=== PATIENT | female | born 1980 ===

== ENCOUNTER 2018-01-22 09:13 | Day surgery (SDC) | payer MEDICAID ==
[2016-09-26 08:51] VITALS: BMI 35.6
[2018-01-22] MEDS ORDERED: Lidocaine Hydrochloride 10 ML INJ ONE (10:08)
[2018-01-22] MEDS ORDERED: Iohexol 240 (50 ml) ONE (10:10)
[2018-01-22] MEDS ORDERED: ceFAZolin 1 gm in NS 1 GM/100 ML BAG IVPB ONE (10:27)
[2018-01-22] MEDS ORDERED: HEPARIN-NS 5,000 UNITS/500 ML 5,000 UNIT/500 ML BAG IV ONE (10:29)
[2018-01-22] MEDS ORDERED: Midazolam 2 MG/2 ML VIAL ONE (12:02)
[2018-01-22] MEDS ORDERED: Propofol 10 mg/ml Inj (20 ML) ONE (12:02)
[2018-01-22] MEDS ORDERED: Lidocaine Hydrochloride 5 ML INJ ONE (12:04)
--- NOTE | 2018-01-22 12:52 | CP.SDSHP ---
Same Day Surgery H & P - History Proposed Procedure: Port placement Pre-Op Diagnosis: Left breast cancer - Allergies Allergies: Allergies No Known Allergies Allergy (Verified 04/19/16 19:25) - Physical Exam Vital Signs: Vital Signs 01/22/18 10:00 Temperature 98.2 F Pulse Rate 83 Respiratory 20 Rate Blood Pressure 112/65 O2 Sat by Pulse 97 Oximetry - Impression Impression: Pt with left breast cancer referred for port for chemotherapy. Plan right IJV port. Pt. Evaluated Today:Candidate for Anesthesia & Procedure: Yes (ASSA 3 Malampati 3) - Date & Time Date: 01/22/18 Time: 12:05 Short Stay Discharge - Short Stay Discharge Admitting Diagnosis/Reason for Visit: MALIGNANT NEOPLASM OF UNSP SITE OF RIGHT FEMALE BR Disposition: HOME/ ROUTINE
--- NOTE | 2018-01-22 12:53 | PCM.SURG1 ---
Surgeon's Initial Post Op Note - Surgeon's Notes Surgeon: Rony Marie MD Survey Data Technician: NONE Type of Anesthesia: IV Sedation Pre-Operative Diagnosis: breast cancer Operative Findings: US showed patent right IJV Post-Operative Diagnosis: breast cancer Operation Performed: Right IJV port placement. Specimen/Specimens Removed: NONE Estimated Blood Loss: EBL {In ML}: 4 Blood Products Given: N/A Drains Used: No Drains Post-Op Condition: Good Date of Surgery/Procedure: 01/22/18 Time of Surgery/Procedure: 12:50
[2018-01-22] MEDS ORDERED: HYDROmorphone 0.5 mg/0.5 ml ISec IVP PRN (13:10)
[2018-01-22] MEDS ORDERED: Lactated Ringer's 1,000 ML IV SCH (13:15)
[2018-01-22 14:25] VITALS: BP 109/60; PULSE 83; RESP 20; TEMP 97; O2SAT 97
--- NOTE | 2018-01-24 12:46 | CARD ---
APPROVED REPORT Date of service: 01/22/2018 EKG Measurement Heart [id number] <Conclusion> Normal sinus rhythm Normal ECG
--- NOTE | 2018-01-24 13:48 | RAD ---
PROCEDURE: Date of procedure: 01/22/2018 Procedure: 1. Placement of a right IJ port catheter with ultrasound and fluoroscopic guidance, CPT 16513 2. Catheter tip confirmation with spot radiograph in the superior vena cava. Medications: The patient was sedated anesthesiologist along with monitoring, Ancef 1 gm, Lidocaine 8cc 1% Fluoroscopic time: 8.4 Seconds Radiation: 5.6 MGy Blood loss: 4 cc HISTORY: Breast cancer requiring port for chemotherapy TECHNIQUE: Following informed consent the procedure time-out, patient was placed supine on the interventional table and the right neck and chest were prepped and draped in the usual sterile fashion. Ultrasound showed a compressible right internal jugular vein. After the patient was sedated by the anesthesiologist, the skin anesthetized with 1% lidocaine with epinephrine. Under direct ultrasound guidance, the right internal jugular vein was accessed with micropuncture technique. A guidewire was then advanced under fluoroscopic guidance into the superior vena cava. An image documenting ultrasound guidance for vascular access was permanently saved. The subcutaneous tissue of patient right chest was infiltrated with 1 percent lidocaine with epinephrine. A dermatotomy was made with a 15. Scalpel. The port pocket was then created with blunt dissection using a Maria Fernanda clamp. The port pocket was flushed. A port catheter was then tunneled under the skin and out the venotomy site. The port catheter was flushed, advanced through a peel-away sheath, adjusted for length, and attached to the port. The port was placed in the port pocket and was secured with 2-0 SurgiPro sutures. The port was flushed and locked with heparin. The port pocket was then closed with absorbable 4-0 Polysorb sutures. The port pocket and the venotomy site were reprepped with ChloraPrep. Steri-Strips were then applied to the port incision also venotomy site. A sterile dressing was then applied. Final spot radiograph showed the right IJ port catheter with tip of the port catheter in the superior vena cava. A port is functional and ready for use. IMPRESSION: Placement of right IJ port catheter. The tip of the port is in the superior vena cava.
== END 2018-01-22 14:34 | disposition home or self-care (01) ==
LOC: C.SPRAD 09:13 → C.SDS 09:13
PROVIDERS: ATTEND Radiology Vascular & Interventional Radiology
DX: C50.912 Malignant neoplasm of unspecified site of left female breast (principal)
CPT/HCPCS: 36571; 84703; C1788; J0690; J1644; J2250; J2704; J3010

== ENCOUNTER 2018-04-01 18:30 | Inpatient (IN) | payer MEDICAID ==
[2018-04-01 18:30] VITALS: BMI 35.6
[2018-04-01] MEDS ORDERED: Sodium Chloride 0.9% 1,000 ML ONE (18:51)
[2018-04-01] MEDS ORDERED: Sodium Chloride 0.9% 1,000 ML IV ONE ×5 (19:17→23:41)
--- NOTE | 2018-04-01 19:17 | C.PDOC ---
History Of Present Illness The patient, whose past medical history includes cancer (currently undergoing chemotherapy) presents to the ED for evaluation after having 4-5 episodes of bloody diarrhea earlier today. Patient shows a picture of her toilet bowl filled with bright red blood. She had one episode of vomiting after arrival in the ED. She denies fever, chills, or vaginal bleeding. Time Seen by Provider: 04/01/18 19:15 Chief Complaint (Nursing): Abdominal Pain History Per: Patient History/Exam Limitations: no limitations Onset/Duration Of Symptoms: Hrs Current Symptoms Are (Timing): Still Present Context: Other (unknown ) Severity: Mild Pain Scale Rating Of: 5 Location Of Pain/Discomfort: Diffuse Associated Symptoms: Vomiting, Diarrhea. denies: Fever, Chills, Urinary Symptoms Exacerbating Factors: None Alleviating Factors: None Last Bowel Movement: Today Recent travel outside of the [place]: No Additional History Per: Patient Abnormal Vaginal Bleeding: No Past Medical History Reviewed: Historical Data, Nursing Documentation, Vital Signs Vital Signs: Last Vital Signs Temp 98.9 F 04/01/18 18:46 Pulse 78 04/01/18 18:46 Resp 18 04/01/18 18:46 BP 96/59 L 04/01/18 18:46 Pulse Ox 98 04/01/18 18:46 - Medical History PMH: Asthma (NEVER HOSPITALIZED), Hypothyroidism Denies: Chronic Kidney Disease Surgical History: Tonsillectomy, - [facility] INJECT/INFUSE NEC (05/27/13) NEBULIZER THERAPY (08/11/13) Family History: States: Unknown Family Hx - Social History Hx Alcohol Use: No Hx Substance Use: No Review Of Systems Constitutional: Negative for: Fever, Chills Cardiovascular: Negative for: Chest Pain, Palpitations Respiratory: Negative for: Cough, Shortness of Breath Gastrointestinal: Positive for: Vomiting, Diarrhea, Hematochezia Genitourinary: Negative for: Dysuria, Frequency, Hematuria Musculoskeletal: Negative for: Back Pain Skin: Negative for: Rash, Lesions, Jaundice, Bruising Neurological: Negative for: Weakness, Numbness Physical Exam - Physical Exam Appears: Non-toxic, No Acute Distress Skin: Warm, Dry Head: Normacephalic Eye(s): bilateral: Normal Inspection Oral Mucosa: Moist Neck: Supple Chest: Symmetrical, No Deformity, No Tenderness, Other (port to right chest wall ) Cardiovascular: Rhythm Regular, No Murmur Respiratory: No Rales, No Rhonchi, No Wheezing Gastrointestinal/Abdominal: Soft, Tenderness (mild, diffuse ), No Guarding, No Rebound Rectal: Heme Positive, Other (rectal vault is empty. patient had large amount of poorly digested food in stool ) Extremity: Normal ROM, Capillary Refill (less than 2 seconds ) Extremity: Bilateral: Atraumatic, Normal Color And Temperature, Normal ROM Pulses: Left Dorsalis Pedis: Normal, Right Dorsalis Pedis: Normal Neurological/Psych: Oriented x3 Gait: Steady ED Course And Treatment - Laboratory Results Result Diagrams: 04/01/18 19:24 04/01/18 19:24 ECG: Interpreted By Me, Viewed By Me ECG Rhythm: Sinus Tachycardia (107), Nonspecific Changes O2 Sat by Pulse Oximetry: 98 (on RA ) Pulse Ox Interpretation: Normal - CT Scan/US CT Abd/Pel Other Rad Studies (CT/US): Read By Radiologist, Radiology Report Reviewed CT/US Interpretation: Findings: Chest: The visualized lung bases are clear. Abdomen: The liver, spleen, pancreas, kidneys, gallbladder, and adrenal glands are unremarkable. The aorta is within normal limits. There is no evidence of abdominal lymphadenopathy or ascites. There is mild fluid distention small bowel with minimal bowel wall thickening. Pelvis: The colon is unremarkable, with no obstructive or inflammatory changes. The urinary bladder is within normal limits. There is a large low attenuation lesion in the right adnexa measuring 3.7 x 3.2 cm. There is a low attenuation lesion in the left adnexa measuring 1.8 x 2.1 cm. The other pelvic structures appear grossly intact. There is no evidence of pelvic lymphadenopathy or ascites. Bones: There are no suspicious osseous abnormalities seen. Impression: 1. Mild enteritis. No evidence of bowel obstruction. 2. Bilateral ovarian cysts, with the right-sided cyst appearing larger than the left. Progress Note: Bloodwork and urinalysis ordered and reviewed. Protonix IVP and and IV Fluids given. 10:28 PM after 2 l nss pt still hypotensive and tachycardic. Spoke with dr florence -icu- will come and see the patient Critical Care Time - Critical Care Note Total Time (in mins): 30 Documented critical care: time excludes all time spent performing seperately billable procedures. Disposition Discussed With DrNellie: Hardik Beauchamp Comment: accepted the pt on his service and took over the care at 11:16 PM Doctor Will See Patient In The: ED Counseled Patient/Family Regarding: Studies Performed, Diagnosis, Need For Followup - Disposition Disposition: HOSPITALIZED Disposition Time: 19:16 Condition: GUARDED Forms: [facility] ([place]) - Clinical Impression Clinical Impression: Abdominal pain, Diarrhea, GI bleed - Scribe Statement The provider has reviewed the documentation as recorded by the Scribe (Kristy Mejia) Provider Attestation: All medical record entries made by the Scribe were at my direction and personally dictated by me. I have reviewed the chart and agree that the record accurately reflects my personal performance of the history, physical exam, medical decision making, and the department course for this patient. I have also personally directed, reviewed, and agree with the discharge instructions and disposition. Decision To Admit - Pt Status Changed To: Hospital Disposition Of: Inpatient - Admit Certification Admit to Inpatient:: After my assessment, the patient will require hospitalization for at least two midnights. This is because of the severity of symptoms shown, intensity of services needed, and/or the medical risk in this patient being treated as an outpatient. - InPatient: Physician Admission Certification:: After my assessment, the patient will require hospitalization for at least two midnights. This is because of the severity of symptoms shown, intensity of services needed, and/or the medical risk in this patient being treated as an outpatient. - . Bed Request Type: ICU Admitting Physician: Hardik Beauchamp Patient Diagnosis: Abdominal pain, Diarrhea, GI bleed
[2018-04-01 19:27] LABS: BASO % 0.1 % (0.0-2.0); HEMOGLOBIN 9.9 g/dL (11.0-16.0); LYMPH # 0.7 K/uL (1.0-4.3); LYMPH % 17.4 % (20.0-40.0); MEAN CELL VOLUME 87.2 fL (81.0-99.0); MEAN CORPUSCULAR HEMOGLOBIN 29.7 pg (27.0-31.0); MEAN PLATELET VOLUME 6.8 fL (7.2-11.7); MONO % 0.5 % (0.0-10.0); NEUT # 3.2 K/uL (1.8-7.0); RBC 3.33 Mil/uL (3.80-5.20); RED CELL DISTRIBUTION WIDTH 16.2 % (11.5-14.5); WHITE BLOOD COUNT 3.9 K/uL (4.8-10.8)
[2018-04-01] MEDS: metroNIDAZOLE IV 500 mg/100 ml 500 MG/100 ML BAG IVPB SCH (19:30)
[2018-04-01 19:39] LABS: BLOOD UREA NITROGEN 16 mg/dL (7-17); CALCIUM 8.4 mg/dl (8.6-10.4); GFR NON-AFRICAN AMERICAN > 60; INR 1.2; LIPASE 147 U/L (23-300); PROTHROMBIN TIME 12.9 SECONDS (9.7-12.2)
[2018-04-01 19:52] LABS: HCG,QUALITATIVE URINE NEGATIVE (NEGATIVE)
[2018-04-01 19:52] LABS: ALB/GLOB RATIO 1.1 (1.0-2.1); ALBUMIN 3.6 g/dL (3.5-5.0); ALT/SGPT 27 U/L (9-52); AST/SGOT 47 U/L (14-36)
[2018-04-01 19:57] LABS: SQUAMOUS EPITHIAL 56 /hpf (0-5); URINE BACTERIA MANY (<OCC); URINE BILIRUBIN NEGATIVE (NEGATIVE); URINE BLOOD NEGATIVE (NEGATIVE); URINE CLARITY Hazy (Clear); URINE COLOR Amber (YELLOW); URINE GLUCOSE (UA) NORMAL (Normal); URINE LEUKOCYTE ESTERASE TRACE Leu/uL (Negative); URINE PROTEIN 2+ mg/dL (NEGATIVE)
[2018-04-01] MEDS ORDERED: Ciprofloxacin 400mg/200ml D5W 400 MG/200 ML BAG IVPB STA (19:59)
[2018-04-01] MEDS ORDERED: metroNIDAZOLE IV 500 mg/100 ml 500 MG/100 ML BAG ONE (20:05)
[2018-04-01] MEDS ORDERED: Ciprofloxacin 400mg/200ml D5W 400 MG/200 ML BAG IVPB ONE (20:05)
[2018-04-01] MEDS ORDERED: Iodixanol 320 MG/ML 100 ML BOTTLE IV ONE (20:13)
[2018-04-01] MEDS ORDERED: Pantoprazole 80 MG in Sodium Chloride 0.9% 100 ML IV ONE (23:30)
--- NOTE | 2018-04-02 00:11 | CP.PCM.CON ---
History of Present Illness - History of Present Illness History of Present Illness: 37 f with h/o left breast ca, diagnosed in Nov 2017, on chemo, started in Jan, every 3 wks, finished 3rd late last month, with h/o diarrhea with the chemo. Patient also admits taking naproxyn 1 tab daily for her ACL tear. She came for 5 episodes of bloody diarrhea at home since 4 pm today, she had an episode of vomiting in ER with fluid and food, not black or blood, had 1 episode of bloody diarrhea in ER. BP has remained in 80's sytolic and 40's diastolic, on laying down, hr in around 110/min. Intermittent shivering with diarrhea. ER CT abd/pelvis shows b/l adnexyl cyst and some fluid in small bowell PMH as above Allergies seasonal, dust Meds Naproxyn, levothyroxine, mvt, chemo Surg port on the right side, c section, tonsils removed family history breast cancer aunt and also father's side, BRCA negative, chemo by Dr. Allison Social has special needs child, not working due to illness, denies alcohol, smoking or illicit drugs. Review of Systems - Review of Systems All systems: reviewed and no additional remarkable complaints except (HPI) Past Patient History - Infectious Disease Hx of Infectious Diseases: None - Past Medical History & Family History Past Medical History?: Yes - Past Social History Alcohol: None Drugs: Denies Home Situation {Lives}: With Family - CARDIAC Hx Cardiac Disorders: No - PULMONARY Hx Asthma: Yes (NEVER HOSPITALIZED) - NEUROLOGICAL Hx Neurological Disorder: No - HEENT Hx HEENT Problems: Yes Other/Comment: HX: TONSILLECTOMY - RENAL Hx Chronic Kidney Disease: No - ENDOCRINE/METABOLIC Hx Hypothyroidism: Yes - HEMATOLOGICAL/ONCOLOGICAL Hx Blood Disorders: Yes Hx Cancer: Yes (LEFT BREAST) - INTEGUMENTARY Hx Dermatological Problems: No - MUSCULOSKELETAL/RHEUMATOLOGICAL Hx Musculoskeletal Disorders: No - GASTROINTESTINAL Hx Gastrointestinal Disorders: No - GENITOURINARY/GYNECOLOGICAL Hx Genitourinary Disorders: No - PSYCHIATRIC Hx Substance Use: No - SURGICAL HISTORY Hx Tonsillectomy: Yes - ANESTHESIA Hx Anesthesia: Yes Hx Anesthesia Reactions: No Hx Malignant Hyperthermia: No Meds Allergies/Adverse Reactions: Allergies Allergy/AdvReac Type Severity Reaction Status Date / Time No Known Allergies Allergy Verified 04/19/16 19:25 - Medications Medications: Current Medications Metronidazole (Flagyl) 500 mg in 100 mls @ 100 mls/hr IVPB STAT MADAY; Protocol Last Admin: 04/01/18 19:30 Dose: 100 mls/hr Ciprofloxacin (Cipro 400mg/200ml Dsw) 400 mg in 200 mls @ 133 mls/hr IVPB Q12H MADAY; Protocol Metronidazole (Flagyl) 500 mg in 100 mls @ 100 mls/hr IVPB Q8H MADAY; Protocol Pantoprazole Sodium 80 mg/ (Sodium Chloride) 100 mls @ 10 mls/hr IV .Q10H MADAY Sodium Chloride (Sodium Chloride 0.9%) 1,000 mls @ 1,000 mls/hr IV .Q1H ONE Stop: 04/02/18 00:40 Last Admin: 04/01/18 23:43 Dose: 1,000 mls/hr Physical Exam - Additional Findings Additional findings: * HEENT SUAD, pale, chemo related alopecia * Neck supple * CVS regular, borderline tachycardia, lower side bp * Chest clear, port on right side * PA soft, nt, bs normal * Ext 1+ edema * Skin normal turgor * UTILIZATION REVIEW COORDINATOR awake oriented x3 no fnd. Results - Vital Signs Recent Vital Signs: Last Vital Signs Temp 98 F 04/01/18 21:24 Pulse 117 H 04/01/18 21:24 Resp 18 04/01/18 21:24 BP 88/50 L 04/01/18 21:24 Pulse Ox 98 04/01/18 23:34 - Labs Result Diagrams: 04/01/18 19:24 04/01/18 19:24 Labs: Laboratory Results - last 24 hr 04/01/18 04/01/18 04/01/18 19:24 19:24 19:24 WBC 3.9 L RBC 3.33 L Hgb 9.9 L Hct 29.0 L MCV 87.2 MCH 29.7 MCHC 34.0 RDW 16.2 H Plt Count 214 MPV 6.8 L Neut % (Auto) 82.0 H Lymph % (Auto) 17.4 L [place] % (Auto) 0.5 Eos % (Auto) 0.0 Baso % (Auto) 0.1 Neut # (Auto) 3.2 Lymph # (Auto) 0.7 L [place] # (Auto) 0.0 Eos # (Auto) 0.0 Baso # (Auto) 0.0 PT 12.9 H INR 1.2 APTT 22 Sodium 136 Potassium 4.1 Chloride 106 Carbon Dioxide 24 Anion Gap 10 BUN 16 Creatinine 0.8 Est GFR ( Amer) > 60 Est GFR (Non-Af Amer) > 60 Random Glucose 106 H Calcium 8.4 L Total Bilirubin 0.7 AST 47 H ALT 27 Alkaline Phosphatase 98 Total Protein 6.8 Albumin 3.6 Globulin 3.2 Albumin/Globulin Ratio 1.1 Lipase 147 Urine Color Urine Clarity Urine pH Ur Specific [place] Urine Protein Urine Glucose (UA) Urine Ketones Urine Blood Urine Nitrate Urine Bilirubin Urine Urobilinogen Ur Leukocyte Esterase Urine WBC (Auto) Urine RBC (Auto) Ur Squamous Epith Cells Urine Bacteria Urine HCG, Qual Stool Occult Blood Blood Type Blood Type Confirm Antibody Screen 04/01/18 04/01/18 04/01/18 19:39 19:41 21:15 WBC RBC Hgb Hct MCV MCH MCHC RDW Plt Count MPV Neut % (Auto) Lymph % (Auto) [place] % (Auto) Eos % (Auto) Baso % (Auto) Neut # (Auto) Lymph # (Auto) [place] # (Auto) Eos # (Auto) Baso # (Auto) PT INR APTT Sodium Potassium Chloride Carbon Dioxide Anion Gap BUN Creatinine Est GFR ( Amer) Est GFR (Non-Af Amer) Random Glucose Calcium Total Bilirubin AST ALT Alkaline Phosphatase Total Protein Albumin Globulin Albumin/Globulin Ratio Lipase Urine Color Jordana Urine Clarity Hazy Urine pH 5.0 Ur Specific [place] 1.033 H Urine Protein 2+ H Urine Glucose (UA) Normal Urine Ketones Negative Urine Blood Negative Urine Nitrate Negative Urine Bilirubin Negative Urine Urobilinogen 2.0 H Ur Leukocyte Esterase Trace Urine WBC (Auto) 90 H Urine RBC (Auto) 3 Ur Squamous Epith Cells 56 H Urine Bacteria Many H Urine HCG, Qual Negative Stool Occult Blood Positive H Blood Type A POSITIVE Blood Type Confirm A POSITIVE Antibody Screen Negative Assessment & Plan - Assessment and Plan (Free Text) Assessment: * Rectal bleeding DD of UGI, entritis vs colitis, previous 2 more likely * Hypotension form hypovolemia * Breast ca left, on chemo * NSAID use Plan: * PRBC x2 then depend on loss and response * IVF * PPI bolus and drip * Cipro+ flagyl * GI consult * [facility] onc consult * Admit to ICU * See orders for detail.
--- NOTE | 2018-04-02 00:29 | CP.PCM.HP ---
<Eligio Chandra - Last Filed: 04/02/18 03:50> History of Present Illness - History of Present Illness History of Present Illness: PGY-1 H&P note for DR Beauchamp cc: Bloody diarrhea HPI: Patient is a 37 year old Female with past medical history Left breast CA under IV chemotherapy 3/6 doses, Hypothyroidism and right LE teared tendon, that came to the ED for 5 episodes of bloody diarrhea that started in the afternoon at 4pm. Patient states this is the first time that this occurs to her, but admits to previous episodes of nonbloody, watery diarrhea since she started chemotherapy in January of this year. Tpday, patient admits to shivering, and her finger tips becoming blue color during diarrhea episodes. Admits to pain and burning when passing bloody stools. Patient admits to one episode of nonbloody vomiting and one more episode of bloody diarrhea in the ER. Patient says she has felt passing blood clots through her stools. last nonbloody diarrhea was monday and patient took one dose of Imodium PO which stopped the diarrhea until today. Pt currently complains of pounding headache and mild dizziness. Patient denies fever, vision changes, chest pain, shortness of breath, abdominal pain, urinary symptoms, rashes, bruising, bleeding, recent sickness, sick contacts. Patient has lost about 10 pounds since chemo started. Admits to loss of appetite at times. PMD: Dr Broderick Allergies: NKDA, dust Pmhx: Left breast CA (diagnosed November 2017), Hypothryroidism Shx: Emergency (7 years ago, low HR, son with hx of Tetralogy of Fallot), Port-a cath right side chest, Tonsillectomy Fmhx: Breast CA (aunt, several paternal family members), Mother (DM, HTN) Sochx: former smoker (1-2 cigarettes a day), denies alcohol and drug use Med: Levothyroxine, naproxen 1 tablet a day, vitamin D, Zofran PRN for nausea Present on Admission - Present on Admission Any Indicators Present on Admission: No Review of Systems - Review of Systems All systems: reviewed and no additional remarkable complaints except Review of Systems: as mentioned in HPI Past Patient History - Infectious Disease Hx of Infectious Diseases: None - Past Medical History & Family History Past Medical History?: Yes - Past Social History Alcohol: None Drugs: Denies Home Situation {Lives}: With Family - CARDIAC Hx Cardiac Disorders: No - PULMONARY Hx Asthma: Yes (NEVER HOSPITALIZED) - NEUROLOGICAL Hx Neurological Disorder: No - HEENT Hx HEENT Problems: Yes Other/Comment: HX: TONSILLECTOMY - RENAL Hx Chronic Kidney Disease: No - ENDOCRINE/METABOLIC Hx Hypothyroidism: Yes - HEMATOLOGICAL/ONCOLOGICAL Hx Blood Disorders: Yes Hx Cancer: Yes (LEFT BREAST) - INTEGUMENTARY Hx Dermatological Problems: No - MUSCULOSKELETAL/RHEUMATOLOGICAL Hx Musculoskeletal Disorders: No - GASTROINTESTINAL Hx Gastrointestinal Disorders: No - GENITOURINARY/GYNECOLOGICAL Hx Genitourinary Disorders: No - PSYCHIATRIC Hx Substance Use: No - SURGICAL HISTORY Hx Tonsillectomy: Yes - ANESTHESIA Hx Anesthesia: Yes Hx Anesthesia Reactions: No Hx Malignant Hyperthermia: No Meds Allergies/Adverse Reactions: Allergies Allergy/AdvReac Type Severity Reaction Status Date / Time No Known Allergies Allergy Verified 04/19/16 19:25 Physical Exam - Constitutional Appears: Non-toxic, No Acute Distress Additional comments: Pale - Head Exam Head Exam: ATRAUMATIC, NORMAL INSPECTION, NORMOCEPHALIC - Eye Exam Eye Exam: EOMI, Normal appearance, PERRL Pupil Exam: NORMAL ACCOMODATION, PERRL - ENT Exam ENT Exam: Mucous Membranes Dry, Normal Exam, Normal Oropharynx - Neck Exam Neck exam: Positive for: Full Rom, Normal Inspection. Negative for: Lymphadenopathy, Tenderness, Thyromegaly - Respiratory Exam Respiratory Exam: Clear to Auscultation Bilateral, NORMAL BREATHING PATTERN. absent: Rales, Rhonchi, Wheezes - Cardiovascular Exam Cardiovascular Exam: Tachycardia, REGULAR RHYTHM, +S1, +S2 - GI/Abdominal Exam GI & Abdominal Exam: Normal Bowel Sounds, Soft. absent: Distended, Guarding, Rigid, Tenderness - Extremities Exam Extremities exam: Positive for: full ROM, normal capillary refill, normal inspection, pedal pulses present. Negative for: calf tenderness, tenderness - Back Exam Back exam: FULL ROM, NORMAL INSPECTION. absent: paraspinal tenderness, rash noted Additional comments: tattoo located upper thoracic region - Neurological Exam Neurological exam: Alert, CN II-XII Intact, Oriented x3 - Psychiatric Exam Psychiatric exam: Normal Affect, Normal Mood - Skin Skin Exam: Dry, Intact, Normal Color, Warm Additional comments: mild erythema on posterior neck/cervical area - Additional Findings Additional findings: breast examination: left breast nipple retraction, no erythema, no scaling noted. small lump at 12 o'clock position on left breast. Right breast nipple retraction, healed scar on right breast skin at 3 o'clock position. no axillary lymphadenopathy bilaterally. Briana-cath located right upper chest area, covered with dressing, c/d/i. Results - Vital Signs Recent Vital Signs: Last Vital Signs Temp 98 F 04/01/18 21:24 Pulse 110 H 04/01/18 23:00 Resp 14 04/01/18 23:00 BP 87/40 L 04/01/18 23:00 Pulse Ox 98 04/01/18 23:34 - Labs Result Diagrams: 04/01/18 19:24 04/01/18 19:24 Labs: Laboratory Results - last 24 hr 04/01/18 04/01/18 04/01/18 19:24 19:24 19:24 WBC 3.9 L RBC 3.33 L Hgb 9.9 L Hct 29.0 L MCV 87.2 MCH 29.7 MCHC 34.0 RDW 16.2 H Plt Count 214 MPV 6.8 L Neut % (Auto) 82.0 H Lymph % (Auto) 17.4 L [place] % (Auto) 0.5 Eos % (Auto) 0.0 Baso % (Auto) 0.1 Neut # (Auto) 3.2 Lymph # (Auto) 0.7 L [place] # (Auto) 0.0 Eos # (Auto) 0.0 Baso # (Auto) 0.0 PT 12.9 H INR 1.2 APTT 22 Sodium 136 Potassium 4.1 Chloride 106 Carbon Dioxide 24 Anion Gap 10 BUN 16 Creatinine 0.8 Est GFR ( Amer) > 60 Est GFR (Non-Af Amer) > 60 Random Glucose 106 H Calcium 8.4 L Total Bilirubin 0.7 AST 47 H ALT 27 Alkaline Phosphatase 98 Total Protein 6.8 Albumin 3.6 Globulin 3.2 Albumin/Globulin Ratio 1.1 Lipase 147 Urine Color Urine Clarity Urine pH Ur Specific [place] Urine Protein Urine Glucose (UA) Urine Ketones Urine Blood Urine Nitrate Urine Bilirubin Urine Urobilinogen Ur Leukocyte Esterase Urine WBC (Auto) Urine RBC (Auto) Ur Squamous Epith Cells Urine Bacteria Urine HCG, Qual Stool Occult Blood Blood Type Blood Type Confirm Antibody Screen 04/01/18 04/01/18 04/01/18 19:39 19:41 21:15 WBC RBC Hgb Hct MCV MCH MCHC RDW Plt Count MPV Neut % (Auto) Lymph % (Auto) [place] % (Auto) Eos % (Auto) Baso % (Auto) Neut # (Auto) Lymph # (Auto) [place] # (Auto) Eos # (Auto) Baso # (Auto) PT INR APTT Sodium Potassium Chloride Carbon Dioxide Anion Gap BUN Creatinine Est GFR ( Amer) Est GFR (Non-Af Amer) Random Glucose Calcium Total Bilirubin AST ALT Alkaline Phosphatase Total Protein Albumin Globulin Albumin/Globulin Ratio Lipase Urine Color Jordana Urine Clarity Hazy Urine pH 5.0 Ur Specific [place] 1.033 H Urine Protein 2+ H Urine Glucose (UA) Normal Urine Ketones Negative Urine Blood Negative Urine Nitrate Negative Urine Bilirubin Negative Urine Urobilinogen 2.0 H Ur Leukocyte Esterase Trace Urine WBC (Auto) 90 H Urine RBC (Auto) 3 Ur Squamous Epith Cells 56 H Urine Bacteria Many H Urine HCG, Qual Negative Stool Occult Blood Positive H Blood Type A POSITIVE Blood Type Confirm A POSITIVE Antibody Screen Negative Assessment & Plan - Assessment and Plan (Free Text) Plan: Bloody diarrhea, possible enteritis vs colitis -CT: Mild enteritis, bilateral ovarian cyst, right cyst larger than left - H/H: 9.9/29.0 - Blood pressure 88/50, Pulse 117 - Occult blood - positive - Admitted to ICU under Dr Abhinav Dodge - Meds: - Cipro 400mg IVPB Q12h - Metronidazole 500mg IVPB Q8h - Protonix 80 mg IV bolus - Protonix drip - GI consult: Dr Timi Lundberg - help is appreciated - Heme/onc consult : Dr Donald - help is appreciated Anemia - H/H: 9.9/ 29.0 - 2 PRBC ordered in the ED - Patient admitted to ICU for monitoring Hypotension - blood pressure 88/50 - IV NS x 1 - patient admitted to ICU for monitoring Hx of Left breast CA - currently on [id number] chemotherapy 3/6 doses completed - Heme/onc consult: Dr Donald - help is appreciated Hx of hypothryroidism - Cont Home med Synthroid 25mcg PO QD Prophylaxis - NPO diet - scds c/i for mild LE swelling and hx of tear tendon pain on Rt LE Plan Discussed with Dr Quynh Chandra, PGY-1 - Date & Time Date: 04/01/18 Time: 11:50 <Hardik Beauchamp - Last Filed: 04/02/18 06:38> Results - Vital Signs Recent Vital Signs: Last Vital Signs Temp 98.2 F 04/02/18 06:15 Pulse 86 04/02/18 06:15 Resp 20 04/02/18 06:15 BP 86/46 L 04/02/18 06:15 Pulse Ox 98 04/02/18 04:00 - Labs Result Diagrams: 04/01/18 19:24 04/01/18 19:24 Labs: Laboratory Results - last 24 hr 04/01/18 04/01/18 04/01/18 19:24 19:24 19:24 WBC 3.9 L RBC 3.33 L Hgb 9.9 L Hct 29.0 L MCV 87.2 MCH 29.7 MCHC 34.0 RDW 16.2 H Plt Count 214 MPV 6.8 L Neut % (Auto) 82.0 H Lymph % (Auto) 17.4 L [place] % (Auto) 0.5 Eos % (Auto) 0.0 Baso % (Auto) 0.1 Neut # (Auto) 3.2 Lymph # (Auto) 0.7 L [place] # (Auto) 0.0 Eos # (Auto) 0.0 Baso # (Auto) 0.0 PT 12.9 H INR 1.2 APTT 22 Sodium 136 Potassium 4.1 Chloride 106 Carbon Dioxide 24 Anion Gap 10 BUN 16 Creatinine 0.8 Est GFR ( Amer) > 60 Est GFR (Non-Af Amer) > 60 Random Glucose 106 H Calcium 8.4 L Total Bilirubin 0.7 AST 47 H ALT 27 Alkaline Phosphatase 98 Total Protein 6.8 Albumin 3.6 Globulin 3.2 Albumin/Globulin Ratio 1.1 Lipase 147 Urine Color Urine Clarity Urine pH Ur Specific [place] Urine Protein Urine Glucose (UA) Urine Ketones Urine Blood Urine Nitrate Urine Bilirubin Urine Urobilinogen Ur Leukocyte Esterase Urine WBC (Auto) Urine RBC (Auto) Ur Squamous Epith Cells Urine Bacteria Urine HCG, Qual Stool Occult Blood Blood Type Blood Type Confirm Antibody Screen 04/01/18 04/01/18 04/01/18 19:39 19:41 21:15 WBC RBC Hgb Hct MCV MCH MCHC RDW Plt Count MPV Neut % (Auto) Lymph % (Auto) [place] % (Auto) Eos % (Auto) Baso % (Auto) Neut # (Auto) Lymph # (Auto) [place] # (Auto) Eos # (Auto) Baso # (Auto) PT INR APTT Sodium Potassium Chloride Carbon Dioxide Anion Gap BUN Creatinine Est GFR ( Amer) Est GFR (Non-Af Amer) Random Glucose Calcium Total Bilirubin AST ALT Alkaline Phosphatase Total Protein Albumin Globulin Albumin/Globulin Ratio Lipase Urine Color Jordana Urine Clarity Hazy Urine pH 5.0 Ur Specific [place] 1.033 H Urine Protein 2+ H Urine Glucose (UA) Normal Urine Ketones Negative Urine Blood Negative Urine Nitrate Negative Urine Bilirubin Negative Urine Urobilinogen 2.0 H Ur Leukocyte Esterase Trace Urine WBC (Auto) 90 H Urine RBC (Auto) 3 Ur Squamous Epith Cells 56 H Urine Bacteria Many H Urine HCG, Qual Negative Stool Occult Blood Positive H Blood Type A POSITIVE Blood Type Confirm A POSITIVE Antibody Screen Negative Assessment & Plan - Date & Time Date: 04/02/18 (I have seen and examined the patient. I agree with the findings and plan of care as documented by Dr. Chandra. Patient with GI bleed. Associated with hypotension and anemia. Consult to GI. Admit to ICU. Protonix IV drip. IVF boluses. Also with History of breast CA. Consult to Dr. Donald. Monitor for acute changes.) Time: 06:35 Attending/Attestation - Attestation I have personally seen and examined this patient.: Yes I have fully participated in the care of the patient.: Yes I have reviewed all pertinent clinical information: Yes
[2018-04-02] MEDS: Pantoprazole 80 MG in Sodium Chloride 0.9% 100 ML IV SCH ×3 (01:35→20:03)
[2018-04-02] MEDS: metroNIDAZOLE IV 500 mg/100 ml 500 MG/100 ML BAG IVPB SCH ×4 (03:33→20:02)
[2018-04-02 07:55] LABS: BASO % 0.3 % (0.0-2.0); HEMOGLOBIN 9.8 g/dL (11.0-16.0); LYMPH # 0.5 K/uL (1.0-4.3); LYMPH % 6.1 % (20.0-40.0); MEAN CORPUSCULAR HEMOGLOBIN 30.8 pg (27.0-31.0); MEAN PLATELET VOLUME 6.7 fL (7.2-11.7); MONO # 0.3 K/uL (0.0-0.8); MONO % 3.5 % (0.0-10.0); NEUT # 6.8 K/uL (1.8-7.0); NEUT % 90.1 % (50.0-75.0); PLATELET COUNT 144 K/uL (130-400); RBC 3.17 Mil/uL (3.80-5.20)
[2018-04-02 07:57] LABS: WHITE BLOOD COUNT 7.5 K/uL (4.8-10.8)
[2018-04-02] MEDS ORDERED: Meropenem 1 GM in Sodium Chloride 0.9% 100 ML IVPB SCH (08:00)
[2018-04-02 08:11] LABS: ALBUMIN 2.5 g/dL (3.5-5.0); ALT/SGPT 31 U/L (9-52); AST/SGOT 19 U/L (14-36); BLOOD UREA NITROGEN 12 mg/dL (7-17); CALCIUM 7.3 mg/dl (8.6-10.4); GFR NON-AFRICAN AMERICAN > 60
[2018-04-02] MEDS: Magnesium Sulfate 1 gm in D5W 1 GM/100 ML BAG IVPB SCH ×2 (09:01→09:17)
[2018-04-02 09:22] LABS: LYMPHOCYTE 6 % (20-40); MONOCYTE 4 % (0-10); NEUTROPHIL 90 % (50-75); PLATELET ESTIMATE NORMAL (NORMAL); TOTAL CELLS COUNTED 100
[2018-04-02] MEDS: Tramadol 25 mg PO PRN ×2 (10:33→18:21)
[2018-04-02] MEDS: Ciprofloxacin 400mg/200ml D5W 400 MG/200 ML BAG IVPB SCH ×2 (10:36→22:49)
--- NOTE | 2018-04-02 10:37 | CT ---
Date of service: 04/01/2018 PROCEDURE: CT Abdomen and Pelvis with contrast HISTORY: Abd pain, GI bleed, Breast carcinoma COMPARISON: None. TECHNIQUE: Contiguous helical/transaxial sections of the abdomen pelvis performed following intravenous injection of approximately 100 cc Visipaque 320 contrast material. Radiation dose: Total exam DLP = 678.49 mGy-cm. This CT exam was performed using one or more of the following dose reduction techniques: Automated exposure control, adjustment of the mA and/or kV according to patient size, and/or use of iterative reconstruction technique. FINDINGS: LOWER THORAX: Mild passive/dependent type atelectasis both posterior lower lung cardona. There also appears to be some linear scarring in the left lung base and lingular and middle lobe regions. Heart size is within range of normal.. No significant pericardial effusion. There is a small hiatal hernia. LIVER: The liver is mildly enlarged measuring approximately 19 cm in CC dimension.. Very mild fatty hepatic infiltration. No obvious hepatic mass collection or calcification. Portal and splenic veins are opacified. GALLBLADDER AND BILE DUCTS: The gallbladder is physiologically distended. No evidence of intraluminal gallbladder calculi. PANCREAS: Unremarkable. No gross lesion or ductal dilatation. SPLEEN: Spleen is borderline enlarged measuring approximately 12.2 cm in AP dimension. No splenic masses, collections or calcifications. ADRENALS: Slightly nodular appearing left adrenal gland.. KIDNEYS AND URETERS: Kidneys demonstrate symmetric nephrograms. No evidence of nephrolithiasis or hydronephrosis. There is a tiny approximately 5.3 mm low-attenuation lesion upper pole left kidney that probably represents a small cyst.. VASCULATURE: Unremarkable. No aortic aneurysm. No aortic atherosclerotic calcification or mural plaque present. BOWEL: Evaluation of the bowel is limited due to the lack of oral contrast material. Visualized loops of small bowel exhibit normal contour and caliber. No evidence of acute mechanical small bowel obstruction. Stool and air seen throughout the large bowel.. APPENDIX: Normal appendix. PERITONEUM: Unremarkable. No free fluid. No free air. Cystitis. There is a small fat containing umbilical hernia. LYMPH NODES: There are few small nonspecific retroperitoneal lymph nodes noted.. BLADDER: Urinary bladder is incompletely distended which presumably in part accounts thick-walled appearance however correlation with urinalysis recommended to exclude. No evidence of intraluminal urinary bladder calculi.. REPRODUCTIVE: Probable of cervical nabothian cysts. There is also a right-sided adnexal cyst that measures approximately 4.4 x 3.6 cm in AP and transverse dimension.. There also appears to be a small left adnexal cyst measuring 2 cm.. Recommend follow-up pelvic ultrasound for confirmation of the aforementioned findings. BONES: Minor multilevel degenerative spondylosis of the thoracic lumbar spine. There are no acute compression fractures no retropulsed fragments.. OTHER FINDINGS: None. IMPRESSION: Bilateral adnexal cyst right larger than left. Probable nabothian cyst cervical nabothian cyst. Recommend follow-up pelvic ultrasound for further evaluation of these findings. Probable tiny cyst upper pole left kidney. Mild hepatomegaly with mild fatty hepatic infiltration. Borderline splenomegaly.
--- NOTE | 2018-04-02 10:52 | CP.CCUPN ---
CCU Subjective - Physician Review Subjective (Free Text): 04/02/18 08:50 Patient seen and examined at bedside. Patient received 2 units of PRBC yesterday. Patient is complaining of a headache and had one bloody bowel movement this morning. Critical Care Time Spent (in minutes): 35 CCU Objective - Vital Signs / Intake & Output Vital Signs (Last 4 hours): Vital Signs Temp Pulse Resp BP Pulse Ox 04/02/18 10:00 95 H 18 92/55 L 99 04/02/18 09:00 94 H 18 92/59 L 97 04/02/18 08:00 99.1 F 93 H 96/60 L 99 04/02/18 07:05 99 F 98 H 19 87/54 L 04/02/18 07:00 90 95/56 L 99 Intake and Output (Last 8hrs): Intake & Output 04/01/18 04/02/18 04/02/18 22:59 06:59 14:59 Intake Total 290 565 Output Total 250 0 Balance 40 565 Weight 83.915 kg 83.552 kg Intake: Intake, IV Amount 290 240 Left Antecubital 250 200 Right Port-A-Cath 40 40 Oral 0 0 Blood Product 0 325 Red Blood Cells Cpd As1 0 325 Lr Unit [id number] Output: Urine 250 0 Urine, Voided 250 0 Stool 0 0 - Physical Exam Head: Positive for: Atraumatic, Normocephalic Pupils: Positive for: PERRL Extroacular Muscles: Positive for: EOMI Conjunctiva: Positive for: Normal Mouth: Positive for: Dry Respiratory/Chest: Positive for: Clear to Auscultation. Negative for: Respiratory Distress, Accessory Muscle Use, Wheezes, Rales, Rhonchi Cardiovascular: Positive for: Regular Rate and Rhythm, Normal S1, S2. Negative for: Murmurs, Rub, Gallop Abdomen: Positive for: Normal Bowel Sounds. Negative for: Tenderness, Distention, Peritoneal Signs Upper Extremity: Positive for: Normal Inspection. Negative for: Edema Lower Extremity: Positive for: Normal Inspection. Negative for: Edema Neurological: Positive for: GCS=15, CN II-XII Intact Skin: Positive for: Warm, Dry, Normal Color. Negative for: Rashes Psychiatric: Positive for: Alert, Oriented x 3, Normal Insight, Normal Concentration - Medications Active Medications: Active Medications Generic Name Dose Route Start Last Admin Trade Name Freq PRN Reason Stop Dose Admin Metronidazole 500 mg in 100 mls @ 100 mls/hr 04/01/18 20:00 04/02/18 10:37 Flagyl IVPB 100 mls/hr STAT MADAY Administration Protocol Ciprofloxacin 400 mg in 200 mls @ 133 mls/hr 04/02/18 10:30 04/02/18 10:36 Cipro 400mg/200ml Dsw IVPB 133 mls/hr Q12H MADAY Administration Protocol Metronidazole 500 mg in 100 mls @ 100 mls/hr 04/02/18 03:30 04/02/18 03:33 Flagyl IVPB 100 mls/hr Q8H MADAY Administration Protocol Pantoprazole Sodium 80 mg/ 100 mls @ 10 mls/hr 04/01/18 23:30 04/02/18 09:16 Sodium Chloride IV 10 mls/hr .Q10H MADAY Administration 8 MG/HR Potassium Chloride 10 meq in 100 mls @ 100 mls/hr 04/02/18 11:00 Potassium Chloride 10 Meq/100 Ml IVPB 04/02/18 11:59 ONCE ONE Potassium Chloride 10 meq in 100 mls @ 100 mls/hr 04/02/18 12:00 Potassium Chloride 10 Meq/100 Ml IVPB 04/02/18 12:59 ONCE ONE Levothyroxine Sodium 25 mcg 04/02/18 06:30 Synthroid PO DAILY@0630 MADAY Tramadol HCl 25 mg 04/02/18 09:11 04/02/18 10:33 Ultram PO 25 mg TID PRN Administration Headache - Patient Studies Lab Studies: Lab Studies 04/02/18 04/02/18 04/02/18 Range/Units 07:50 07:50 07:50 WBC 7.5 D (4.8-10.8) K/uL RBC 3.17 L (3.80-5.20) Mil/uL Hgb 9.8 L (11.0-16.0) g/dL Hct 27.9 L (34.0-47.0) % MCV 88.0 (81.0-99.0) fL MCH 30.8 (27.0-31.0) pg MCHC 35.0 (33.0-37.0) g/dL RDW 16.0 H (11.5-14.5) % Plt Count 144 (130-400) K/uL MPV 6.7 L (7.2-11.7) fL Neut % (Auto) 90.1 H (50.0-75.0) % Lymph % (Auto) 6.1 L (20.0-40.0) % [place] % (Auto) 3.5 (0.0-10.0) % Eos % (Auto) 0.0 (0.0-4.0) % Baso % (Auto) 0.3 (0.0-2.0) % Neut # (Auto) 6.8 (1.8-7.0) K/uL Lymph # (Auto) 0.5 L (1.0-4.3) K/uL [place] # (Auto) 0.3 (0.0-0.8) K/uL Eos # (Auto) 0.0 (0.0-0.7) K/uL Baso # (Auto) 0.0 (0.0-0.2) K/uL Neutrophils % (Manual) 90 H (50-75) % Lymphocytes % (Manual) 6 L (20-40) % Monocytes % (Manual) 4 (0-10) % Platelet Estimate Normal (NORMAL) RBC Morphology Normal PT (9.7-12.2) SECONDS INR APTT (21-34) SECONDS Sodium 138 (132-148) mmol/L Potassium 3.4 L (3.6-5.2) mmol/L Chloride 108 H (98-107) mmol/L Carbon Dioxide 23 (22-30) mmol/L Anion Gap 10 (10-20) BUN 12 (7-17) mg/dL Creatinine 0.7 (0.7-1.2) mg/dL Est GFR ( Amer) > 60 Est GFR (Non-Af Amer) > 60 POC Glucose (mg/dL) (65-110) mg/dL Random Glucose 86 (65-105) mg/dL Lactic Acid 0.9 (0.7-2.1) mmol/L Calcium 7.3 L (8.6-10.4) mg/dl Phosphorus 3.2 (2.5-4.5) mg/dL Magnesium 1.2 L (1.6-2.3) mg/dL Total Bilirubin 1.2 (0.2-1.3) mg/dL AST 19 (14-36) U/L ALT 31 (9-52) U/L Alkaline Phosphatase 76 (38-126) U/L Total Protein 5.1 L (6.3-8.3) g/dL Albumin 2.5 L D (3.5-5.0) g/dL Globulin 2.5 (2.2-3.9) gm/dL Albumin/Globulin Ratio 1.0 (1.0-2.1) Lipase (23-300) U/L Urine Color (YELLOW) Urine Clarity (Clear) Urine pH (5.0-8.0) Ur Specific [place] (1.003-1.030) Urine Protein (NEGATIVE) mg/dL Urine Glucose (UA) (Normal) mg/dL Urine Ketones (NEGATIVE) mg/dL Urine Blood (NEGATIVE) Urine Nitrate (NEGATIVE) Urine Bilirubin (NEGATIVE) Urine Urobilinogen (0.2-1.0) mg/dL Ur Leukocyte Esterase (Negative) Chandu/uL Urine WBC (Auto) (0-5) /hpf Urine RBC (Auto) (0-3) /hpf Ur Squamous Epith Cells (0-5) /hpf Urine Bacteria (<OCC) Urine HCG, Qual (NEGATIVE) Stool Occult Blood (NEGATIVE) Blood Type Blood Type Confirm Antibody Screen 04/02/18 04/01/18 04/01/18 Range/Units 07:08 21:15 19:41 WBC (4.8-10.8) K/uL RBC (3.80-5.20) Mil/uL Hgb (11.0-16.0) g/dL Hct (34.0-47.0) % MCV (81.0-99.0) fL MCH (27.0-31.0) pg MCHC (33.0-37.0) g/dL RDW (11.5-14.5) % Plt Count (130-400) K/uL MPV (7.2-11.7) fL Neut % (Auto) (50.0-75.0) % Lymph % (Auto) (20.0-40.0) % [place] % (Auto) (0.0-10.0) % Eos % (Auto) (0.0-4.0) % Baso % (Auto) (0.0-2.0) % Neut # (Auto) (1.8-7.0) K/uL Lymph # (Auto) (1.0-4.3) K/uL [place] # (Auto) (0.0-0.8) K/uL Eos # (Auto) (0.0-0.7) K/uL Baso # (Auto) (0.0-0.2) K/uL Neutrophils % (Manual) (50-75) % Lymphocytes % (Manual) (20-40) % Monocytes % (Manual) (0-10) % Platelet Estimate (NORMAL) RBC Morphology PT (9.7-12.2) SECONDS INR APTT (21-34) SECONDS Sodium (132-148) mmol/L Potassium (3.6-5.2) mmol/L Chloride (98-107) mmol/L Carbon Dioxide (22-30) mmol/L Anion Gap (10-20) BUN (7-17) mg/dL Creatinine (0.7-1.2) mg/dL Est GFR ( Amer) Est GFR (Non-Af Amer) POC Glucose (mg/dL) 75 (65-110) mg/dL Random Glucose (65-105) mg/dL Lactic Acid (0.7-2.1) mmol/L Calcium (8.6-10.4) mg/dl Phosphorus (2.5-4.5) mg/dL Magnesium (1.6-2.3) mg/dL Total Bilirubin (0.2-1.3) mg/dL AST (14-36) U/L ALT (9-52) U/L Alkaline Phosphatase (38-126) U/L Total Protein (6.3-8.3) g/dL Albumin (3.5-5.0) g/dL Globulin (2.2-3.9) gm/dL Albumin/Globulin Ratio (1.0-2.1) Lipase (23-300) U/L Urine Color [place] (YELLOW) Urine Clarity Hazy (Clear) Urine pH 5.0 (5.0-8.0) Ur Specific [place] 1.033 H (1.003-1.030) Urine Protein 2+ H (NEGATIVE) mg/dL Urine Glucose (UA) Normal (Normal) mg/dL Urine Ketones Negative (NEGATIVE) mg/dL Urine Blood Negative (NEGATIVE) Urine Nitrate Negative (NEGATIVE) Urine Bilirubin Negative (NEGATIVE) Urine Urobilinogen 2.0 H (0.2-1.0) mg/dL Ur Leukocyte Esterase Trace (Negative) Chandu/uL Urine WBC (Auto) 90 H (0-5) /hpf Urine RBC (Auto) 3 (0-3) /hpf Ur Squamous Epith Cells 56 H (0-5) /hpf Urine Bacteria Many H (<OCC) Urine HCG, Qual Negative (NEGATIVE) Stool Occult Blood (NEGATIVE) Blood Type A POSITIVE Blood Type Confirm A POSITIVE Antibody Screen Negative 04/01/18 04/01/18 04/01/18 Range/Units 19:39 19:24 19:24 WBC (4.8-10.8) K/uL RBC (3.80-5.20) Mil/uL Hgb (11.0-16.0) g/dL Hct (34.0-47.0) % MCV (81.0-99.0) fL MCH (27.0-31.0) pg MCHC (33.0-37.0) g/dL RDW (11.5-14.5) % Plt Count (130-400) K/uL MPV (7.2-11.7) fL Neut % (Auto) (50.0-75.0) % Lymph % (Auto) (20.0-40.0) % [place] % (Auto) (0.0-10.0) % Eos % (Auto) (0.0-4.0) % Baso % (Auto) (0.0-2.0) % Neut # (Auto) (1.8-7.0) K/uL Lymph # (Auto) (1.0-4.3) K/uL [place] # (Auto) (0.0-0.8) K/uL Eos # (Auto) (0.0-0.7) K/uL Baso # (Auto) (0.0-0.2) K/uL Neutrophils % (Manual) (50-75) % Lymphocytes % (Manual) (20-40) % Monocytes % (Manual) (0-10) % Platelet Estimate (NORMAL) RBC Morphology PT 12.9 H (9.7-12.2) SECONDS INR 1.2 APTT 22 (21-34) SECONDS Sodium 136 (132-148) mmol/L Potassium 4.1 (3.6-5.2) mmol/L Chloride 106 (98-107) mmol/L Carbon Dioxide 24 (22-30) mmol/L Anion Gap 10 (10-20) BUN 16 (7-17) mg/dL Creatinine 0.8 (0.7-1.2) mg/dL Est GFR ( Amer) > 60 Est GFR (Non-Af Amer) > 60 POC Glucose (mg/dL) (65-110) mg/dL Random Glucose 106 H (65-105) mg/dL Lactic Acid (0.7-2.1) mmol/L Calcium 8.4 L (8.6-10.4) mg/dl Phosphorus (2.5-4.5) mg/dL Magnesium (1.6-2.3) mg/dL Total Bilirubin 0.7 (0.2-1.3) mg/dL AST 47 H (14-36) U/L ALT 27 (9-52) U/L Alkaline Phosphatase 98 (38-126) U/L Total Protein 6.8 (6.3-8.3) g/dL Albumin 3.6 (3.5-5.0) g/dL Globulin 3.2 (2.2-3.9) gm/dL Albumin/Globulin Ratio 1.1 (1.0-2.1) Lipase 147 (23-300) U/L Urine Color (YELLOW) Urine Clarity (Clear) Urine pH (5.0-8.0) Ur Specific [place] (1.003-1.030) Urine Protein (NEGATIVE) mg/dL Urine Glucose (UA) (Normal) mg/dL Urine Ketones (NEGATIVE) mg/dL Urine Blood (NEGATIVE) Urine Nitrate (NEGATIVE) Urine Bilirubin (NEGATIVE) Urine Urobilinogen (0.2-1.0) mg/dL Ur Leukocyte Esterase (Negative) Chandu/uL Urine WBC (Auto) (0-5) /hpf Urine RBC (Auto) (0-3) /hpf Ur Squamous Epith Cells (0-5) /hpf Urine Bacteria (<OCC) Urine HCG, Qual (NEGATIVE) Stool Occult Blood Positive H (NEGATIVE) Blood Type Blood Type Confirm Antibody Screen 04/01/18 Range/Units 19:24 WBC 3.9 L (4.8-10.8) K/uL RBC 3.33 L (3.80-5.20) Mil/uL Hgb 9.9 L (11.0-16.0) g/dL Hct 29.0 L (34.0-47.0) % MCV 87.2 (81.0-99.0) fL MCH 29.7 (27.0-31.0) pg MCHC 34.0 (33.0-37.0) g/dL RDW 16.2 H (11.5-14.5) % Plt Count 214 (130-400) K/uL MPV 6.8 L (7.2-11.7) fL Neut % (Auto) 82.0 H (50.0-75.0) % Lymph % (Auto) 17.4 L (20.0-40.0) % [place] % (Auto) 0.5 (0.0-10.0) % Eos % (Auto) 0.0 (0.0-4.0) % Baso % (Auto) 0.1 (0.0-2.0) % Neut # (Auto) 3.2 (1.8-7.0) K/uL Lymph # (Auto) 0.7 L (1.0-4.3) K/uL [place] # (Auto) 0.0 (0.0-0.8) K/uL Eos # (Auto) 0.0 (0.0-0.7) K/uL Baso # (Auto) 0.0 (0.0-0.2) K/uL Neutrophils % (Manual) (50-75) % Lymphocytes % (Manual) (20-40) % Monocytes % (Manual) (0-10) % Platelet Estimate (NORMAL) RBC Morphology PT (9.7-12.2) SECONDS INR APTT (21-34) SECONDS Sodium (132-148) mmol/L Potassium (3.6-5.2) mmol/L Chloride (98-107) mmol/L Carbon Dioxide (22-30) mmol/L Anion Gap (10-20) BUN (7-17) mg/dL Creatinine (0.7-1.2) mg/dL Est GFR ( Amer) Est GFR (Non-Af Amer) POC Glucose (mg/dL) (65-110) mg/dL Random Glucose (65-105) mg/dL Lactic Acid (0.7-2.1) mmol/L Calcium (8.6-10.4) mg/dl Phosphorus (2.5-4.5) mg/dL Magnesium (1.6-2.3) mg/dL Total Bilirubin (0.2-1.3) mg/dL AST (14-36) U/L ALT (9-52) U/L Alkaline Phosphatase (38-126) U/L Total Protein (6.3-8.3) g/dL Albumin (3.5-5.0) g/dL Globulin (2.2-3.9) gm/dL Albumin/Globulin Ratio (1.0-2.1) Lipase (23-300) U/L Urine Color (YELLOW) Urine Clarity (Clear) Urine pH (5.0-8.0) Ur Specific [place] (1.003-1.030) Urine Protein (NEGATIVE) mg/dL Urine Glucose (UA) (Normal) mg/dL Urine Ketones (NEGATIVE) mg/dL Urine Blood (NEGATIVE) Urine Nitrate (NEGATIVE) Urine Bilirubin (NEGATIVE) Urine Urobilinogen (0.2-1.0) mg/dL Ur Leukocyte Esterase (Negative) Chandu/uL Urine WBC (Auto) (0-5) /hpf Urine RBC (Auto) (0-3) /hpf Ur Squamous Epith Cells (0-5) /hpf Urine Bacteria (<OCC) Urine HCG, Qual (NEGATIVE) Stool Occult Blood (NEGATIVE) Blood Type Blood Type Confirm Antibody Screen Laboratory Results - last 24 hr 04/01/18 04/01/18 04/01/18 19:24 19:24 19:24 WBC 3.9 L RBC 3.33 L Hgb 9.9 L Hct 29.0 L MCV 87.2 MCH 29.7 MCHC 34.0 RDW 16.2 H Plt Count 214 MPV 6.8 L Neut % (Auto) 82.0 H Lymph % (Auto) 17.4 L [place] % (Auto) 0.5 Eos % (Auto) 0.0 Baso % (Auto) 0.1 Neut # (Auto) 3.2 Lymph # (Auto) 0.7 L [place] # (Auto) 0.0 Eos # (Auto) 0.0 Baso # (Auto) 0.0 Neutrophils % (Manual) Lymphocytes % (Manual) Monocytes % (Manual) Platelet Estimate RBC Morphology PT 12.9 H INR 1.2 APTT 22 Sodium 136 Potassium 4.1 Chloride 106 Carbon Dioxide 24 Anion Gap 10 BUN 16 Creatinine 0.8 Est GFR ( Amer) > 60 Est GFR (Non-Af Amer) > 60 POC Glucose (mg/dL) Random Glucose 106 H Lactic Acid Calcium 8.4 L Phosphorus Magnesium Total Bilirubin 0.7 AST 47 H ALT 27 Alkaline Phosphatase 98 Total Protein 6.8 Albumin 3.6 Globulin 3.2 Albumin/Globulin Ratio 1.1 Lipase 147 Urine Color Urine Clarity Urine pH Ur Specific [place] Urine Protein Urine Glucose (UA) Urine Ketones Urine Blood Urine Nitrate Urine Bilirubin Urine Urobilinogen Ur Leukocyte Esterase Urine WBC (Auto) Urine RBC (Auto) Ur Squamous Epith Cells Urine Bacteria Urine HCG, Qual Stool Occult Blood Blood Type Blood Type Confirm Antibody Screen 04/01/18 04/01/18 04/01/18 19:39 19:41 21:15 WBC RBC Hgb Hct MCV MCH MCHC RDW Plt Count MPV Neut % (Auto) Lymph % (Auto) [place] % (Auto) Eos % (Auto) Baso % (Auto) Neut # (Auto) Lymph # (Auto) [place] # (Auto) Eos # (Auto) Baso # (Auto) Neutrophils % (Manual) Lymphocytes % (Manual) Monocytes % (Manual) Platelet Estimate RBC Morphology PT INR APTT Sodium Potassium Chloride Carbon Dioxide Anion Gap BUN Creatinine Est GFR ( Amer) Est GFR (Non-Af Amer) POC Glucose (mg/dL) Random Glucose Lactic Acid Calcium Phosphorus Magnesium Total Bilirubin AST ALT Alkaline Phosphatase Total Protein Albumin Globulin Albumin/Globulin Ratio Lipase Urine Color [place] Urine Clarity Hazy Urine pH 5.0 Ur Specific [place] 1.033 H Urine Protein 2+ H Urine Glucose (UA) Normal Urine Ketones Negative Urine Blood Negative Urine Nitrate Negative Urine Bilirubin Negative Urine Urobilinogen 2.0 H Ur Leukocyte Esterase Trace Urine WBC (Auto) 90 H Urine RBC (Auto) 3 Ur Squamous Epith Cells 56 H Urine Bacteria Many H Urine HCG, Qual Negative Stool Occult Blood Positive H Blood Type A POSITIVE Blood Type Confirm A POSITIVE Antibody Screen Negative 04/02/18 04/02/18 04/02/18 07:08 07:50 07:50 WBC 7.5 D RBC 3.17 L Hgb 9.8 L Hct 27.9 L MCV 88.0 MCH 30.8 MCHC 35.0 RDW 16.0 H Plt Count 144 MPV 6.7 L Neut % (Auto) 90.1 H Lymph % (Auto) 6.1 L [place] % (Auto) 3.5 Eos % (Auto) 0.0 Baso % (Auto) 0.3 Neut # (Auto) 6.8 Lymph # (Auto) 0.5 L [place] # (Auto) 0.3 Eos # (Auto) 0.0 Baso # (Auto) 0.0 Neutrophils % (Manual) 90 H Lymphocytes % (Manual) 6 L Monocytes % (Manual) 4 Platelet Estimate Normal RBC Morphology Normal PT INR APTT Sodium 138 Potassium 3.4 L Chloride 108 H Carbon Dioxide 23 Anion Gap 10 BUN 12 Creatinine 0.7 Est GFR ( Amer) > 60 Est GFR (Non-Af Amer) > 60 POC Glucose (mg/dL) 75 Random Glucose 86 Lactic Acid Calcium 7.3 L Phosphorus 3.2 Magnesium 1.2 L Total Bilirubin 1.2 AST 19 ALT 31 Alkaline Phosphatase 76 Total Protein 5.1 L Albumin 2.5 L D Globulin 2.5 Albumin/Globulin Ratio 1.0 Lipase Urine Color Urine Clarity Urine pH Ur Specific [place] Urine Protein Urine Glucose (UA) Urine Ketones Urine Blood Urine Nitrate Urine Bilirubin Urine Urobilinogen Ur Leukocyte Esterase Urine WBC (Auto) Urine RBC (Auto) Ur Squamous Epith Cells Urine Bacteria Urine HCG, Qual Stool Occult Blood Blood Type Blood Type Confirm Antibody Screen 04/02/18 07:50 WBC RBC Hgb Hct MCV MCH MCHC RDW Plt Count MPV Neut % (Auto) Lymph % (Auto) [place] % (Auto) Eos % (Auto) Baso % (Auto) Neut # (Auto) Lymph # (Auto) [place] # (Auto) Eos # (Auto) Baso # (Auto) Neutrophils % (Manual) Lymphocytes % (Manual) Monocytes % (Manual) Platelet Estimate RBC Morphology PT INR APTT Sodium Potassium Chloride Carbon Dioxide Anion Gap BUN Creatinine Est GFR ( Amer) Est GFR (Non-Af Amer) POC Glucose (mg/dL) Random Glucose Lactic Acid 0.9 Calcium Phosphorus Magnesium Total Bilirubin AST ALT Alkaline Phosphatase Total Protein Albumin Globulin Albumin/Globulin Ratio Lipase Urine Color Urine Clarity Urine pH Ur Specific [place] Urine Protein Urine Glucose (UA) Urine Ketones Urine Blood Urine Nitrate Urine Bilirubin Urine Urobilinogen Ur Leukocyte Esterase Urine WBC (Auto) Urine RBC (Auto) Ur Squamous Epith Cells Urine Bacteria Urine HCG, Qual Stool Occult Blood Blood Type Blood Type Confirm Antibody Screen EKG/Cardiology Studies: Cardiology / EKG Studies 04/01/18 22:27 EKG [ELECTROCARDIOGRAM] Stat Comment: ed 6 Mode Of Transportation: Reason For Exam: tachycardia Critical Care Progress Note - Nutrition Nutrition: Nutrition Category Date Time Status NPO Diet [DIET] Diets 04/02/18 Breakfast Active Assessment/Plan - Assessment and Plan (Free Text) Assessment: Patient is a 37 year old Female with past medical history Left breast CA getting IV chemotherapy 3/6 doses, Hypothyroidism, and right LE teared tendon,pr esenting with bloody diarrhea. Patient is admitted to ICU for GI bleed and hypotension. Patient received 2 units of PRBC yesterday. Plan: Neuro: Headache - Patient is AAO X 3 - Tramadol 25mg PO Q8 PRN Cardiovascular: Hypotension - Likely 2/2 diarrhea - 4L IV boluses given since admission - Continue to monitor Pulm: - No acute issues GI: Bloody diarrhea - Likely 2/2 chemotherapy - GI consulted, Dr. Lundberg - 4L IV boluses given since admission - Protonix drip - Monitor H&H - S/p 2 units of PRBC on 04/01 Enteritis - CT abd/pelvis (04/01): Mild enteritis, no bowel obstruction, bilateral ovarian cysts - Ciprofloxacin 400mg IV Q12 (Started on 04/01) - Metronidazole 500mg IV Q8 (Started on 04/01) - GI consulted, Dr. Lundberg Heme/onc: Acute Anemia - Hb: 9.8-->9.9 - S/p 2 units of PRBC on 04/01 - Continue to monitor Hx of breast cancer - Hem-onc consulted, Dr. Donald Endocrine: Hypothyroidism - Synthroid 25mg PO QD - TSH, Free T4: f/u Renal: Hypokalemia - Replete as needed - Continue to monitor : Asymptomatic UTI - UA: positive for Leuk esterase, WBC, bacteria - Ciprofloxacin 400mg IV Q12 (Started on 04/01) - Metronidazole 500mg IV Q8 (Started on 04/01) - Urine cx: f/u Prophylaxis: - SCD's - VTE prophylaxis contraindicated to GI bleed - Protonix drip Case discussed with Dr. Norman Vanegas, PGY-1
--- NOTE | 2018-04-02 14:58 | CP.PCM.CON ---
History of Present Illness - History of Present Illness History of Present Illness: GI Service Consult CC: bloody stool HPI: 37 yr old woman, on chemo for breast CA, developed 5 episodes of red bloody BMs yesterday followed by chills and dizziness. Initial Hgb was 9.8 and pt received 2 units PRBC transfusion with f/u Hgb level 9.9. No further bleeding episodes noted since yesterday but pt is in ICU with hypotension. Denies abdominal pain or prior h/o GI bleeding. Review of Systems - Constitutional Constitutional: Chills, Malaise, Weakness. absent: Fever - EENT Eyes: absent: Change in Vision - Breasts Breasts: As Per HPI - Cardiovascular Cardiovascular: absent: Chest Pain - Respiratory Respiratory: absent: Dyspnea - Gastrointestinal Gastrointestinal: As Per HPI. absent: Abdominal Pain - Neurological Neurological: Dizziness, Headaches - Psychiatric Psychiatric: absent: Behavioral Changes - Hematologic/Lymphatic Hematologic: absent: Easy Bleeding Past Patient History - Infectious Disease Hx of Infectious Diseases: None - Past Medical History & Family History Past Medical History?: Yes - Past Social History Alcohol: None Drugs: Denies Home Situation {Lives}: With Family - CARDIAC Hx Cardiac Disorders: No - PULMONARY Hx Asthma: Yes (NEVER HOSPITALIZED) - NEUROLOGICAL Hx Neurological Disorder: No - HEENT Hx HEENT Problems: Yes Other/Comment: HX: TONSILLECTOMY - RENAL Hx Chronic Kidney Disease: No - ENDOCRINE/METABOLIC Hx Hypothyroidism: Yes - HEMATOLOGICAL/ONCOLOGICAL Hx Blood Disorders: Yes Hx Cancer: Yes (LEFT BREAST) - INTEGUMENTARY Hx Dermatological Problems: No - MUSCULOSKELETAL/RHEUMATOLOGICAL Hx Musculoskeletal Disorders: No - GASTROINTESTINAL Hx Gastrointestinal Disorders: No - GENITOURINARY/GYNECOLOGICAL Hx Genitourinary Disorders: No - PSYCHIATRIC Hx Substance Use: No - SURGICAL HISTORY Hx Tonsillectomy: Yes - ANESTHESIA Hx Anesthesia: Yes Hx Anesthesia Reactions: No Hx Malignant Hyperthermia: No Meds Allergies/Adverse Reactions: Allergies Allergy/AdvReac Type Severity Reaction Status Date / Time No Known Allergies Allergy Verified 04/19/16 19:25 - Medications Medications: Current Medications Metronidazole (Flagyl) 500 mg in 100 mls @ 100 mls/hr IVPB STAT MADAY; Protocol Last Admin: 04/01/18 19:30 Dose: 100 mls/hr Ciprofloxacin (Cipro 400mg/200ml Dsw) 400 mg in 200 mls @ 133 mls/hr IVPB Q12H MADAY; Protocol Last Admin: 04/02/18 10:36 Dose: 133 mls/hr Metronidazole (Flagyl) 500 mg in 100 mls @ 100 mls/hr IVPB Q8H MADAY; Protocol Last Admin: 04/02/18 12:19 Dose: 100 mls/hr Pantoprazole Sodium 80 mg/ (Sodium Chloride) 100 mls @ 10 mls/hr IV .Q10H MADAY Last Admin: 04/02/18 09:16 Dose: 10 mls/hr Levothyroxine Sodium (Synthroid) 25 mcg PO DAILY@0630 [facility] Tramadol HCl (Ultram) 25 mg PO TID PRN PRN Reason: Headache Last Admin: 04/02/18 10:33 Dose: 25 mg Physical Exam - Constitutional Appears: Well, No Acute Distress - Head Exam Head Exam: ATRAUMATIC, NORMOCEPHALIC - Eye Exam Eye Exam: Normal appearance. absent: Scleral icterus - ENT Exam ENT Exam: Normal Exam - Neck Exam Neck exam: Positive for: Normal Inspection - Respiratory Exam Respiratory Exam: Clear to Auscultation Bilateral - Cardiovascular Exam Cardiovascular Exam: REGULAR RHYTHM - GI/Abdominal Exam GI & Abdominal Exam: Soft. absent: Mass, Tenderness - Rectal Exam Rectal Exam: Deferred - Extremities Exam Extremities exam: Positive for: normal inspection - Neurological Exam Neurological exam: Alert, Oriented x3 - Skin Skin Exam: Warm Results - Vital Signs Recent Vital Signs: Last Vital Signs Temp 98.6 F 04/02/18 12:00 Pulse 92 H 04/02/18 13:00 Resp 18 04/02/18 13:00 BP 92/49 L 04/02/18 13:00 Pulse Ox 96 04/02/18 13:00 - Labs Result Diagrams: 04/02/18 07:50 04/02/18 07:50 Labs: Laboratory Results - last 24 hr 04/01/18 04/01/18 04/01/18 19:24 19:24 19:24 WBC 3.9 L RBC 3.33 L Hgb 9.9 L Hct 29.0 L MCV 87.2 MCH 29.7 MCHC 34.0 RDW 16.2 H Plt Count 214 MPV 6.8 L Neut % (Auto) 82.0 H Lymph % (Auto) 17.4 L [place] % (Auto) 0.5 Eos % (Auto) 0.0 Baso % (Auto) 0.1 Neut # (Auto) 3.2 Lymph # (Auto) 0.7 L [place] # (Auto) 0.0 Eos # (Auto) 0.0 Baso # (Auto) 0.0 Neutrophils % (Manual) Lymphocytes % (Manual) Monocytes % (Manual) Platelet Estimate RBC Morphology PT 12.9 H INR 1.2 APTT 22 Sodium 136 Potassium 4.1 Chloride 106 Carbon Dioxide 24 Anion Gap 10 BUN 16 Creatinine 0.8 Est GFR ( Amer) > 60 Est GFR (Non-Af Amer) > 60 POC Glucose (mg/dL) Random Glucose 106 H Lactic Acid Calcium 8.4 L Phosphorus Magnesium Total Bilirubin 0.7 AST 47 H ALT 27 Alkaline Phosphatase 98 Total Protein 6.8 Albumin 3.6 Globulin 3.2 Albumin/Globulin Ratio 1.1 Lipase 147 Procalcitonin Urine Color Urine Clarity Urine pH Ur Specific [place] Urine Protein Urine Glucose (UA) Urine Ketones Urine Blood Urine Nitrate Urine Bilirubin Urine Urobilinogen Ur Leukocyte Esterase Urine WBC (Auto) Urine RBC (Auto) Ur Squamous Epith Cells Urine Bacteria Urine HCG, Qual Stool Occult Blood Blood Type Blood Type Confirm Antibody Screen 04/01/18 04/01/18 04/01/18 19:39 19:41 21:15 WBC RBC Hgb Hct MCV MCH MCHC RDW Plt Count MPV Neut % (Auto) Lymph % (Auto) [place] % (Auto) Eos % (Auto) Baso % (Auto) Neut # (Auto) Lymph # (Auto) [place] # (Auto) Eos # (Auto) Baso # (Auto) Neutrophils % (Manual) Lymphocytes % (Manual) Monocytes % (Manual) Platelet Estimate RBC Morphology PT INR APTT Sodium Potassium Chloride Carbon Dioxide Anion Gap BUN Creatinine Est GFR ( Amer) Est GFR (Non-Af Amer) POC Glucose (mg/dL) Random Glucose Lactic Acid Calcium Phosphorus Magnesium Total Bilirubin AST ALT Alkaline Phosphatase Total Protein Albumin Globulin Albumin/Globulin Ratio Lipase Procalcitonin Urine Color Jordana Urine Clarity Hazy Urine pH 5.0 Ur Specific [place] 1.033 H Urine Protein 2+ H Urine Glucose (UA) Normal Urine Ketones Negative Urine Blood Negative Urine Nitrate Negative Urine Bilirubin Negative Urine Urobilinogen 2.0 H Ur Leukocyte Esterase Trace Urine WBC (Auto) 90 H Urine RBC (Auto) 3 Ur Squamous Epith Cells 56 H Urine Bacteria Many H Urine HCG, Qual Negative Stool Occult Blood Positive H Blood Type A POSITIVE Blood Type Confirm A POSITIVE Antibody Screen Negative 04/02/18 04/02/18 04/02/18 07:08 07:50 07:50 WBC 7.5 D RBC 3.17 L Hgb 9.8 L Hct 27.9 L MCV 88.0 MCH 30.8 MCHC 35.0 RDW 16.0 H Plt Count 144 MPV 6.7 L Neut % (Auto) 90.1 H Lymph % (Auto) 6.1 L [place] % (Auto) 3.5 Eos % (Auto) 0.0 Baso % (Auto) 0.3 Neut # (Auto) 6.8 Lymph # (Auto) 0.5 L [place] # (Auto) 0.3 Eos # (Auto) 0.0 Baso # (Auto) 0.0 Neutrophils % (Manual) 90 H Lymphocytes % (Manual) 6 L Monocytes % (Manual) 4 Platelet Estimate Normal RBC Morphology Normal PT INR APTT Sodium 138 Potassium 3.4 L Chloride 108 H Carbon Dioxide 23 Anion Gap 10 BUN 12 Creatinine 0.7 Est GFR ( Amer) > 60 Est GFR (Non-Af Amer) > 60 POC Glucose (mg/dL) 75 Random Glucose 86 Lactic Acid Calcium 7.3 L Phosphorus 3.2 Magnesium 1.2 L Total Bilirubin 1.2 AST 19 ALT 31 Alkaline Phosphatase 76 Total Protein 5.1 L Albumin 2.5 L D Globulin 2.5 Albumin/Globulin Ratio 1.0 Lipase Procalcitonin Urine Color Urine Clarity Urine pH Ur Specific [place] Urine Protein Urine Glucose (UA) Urine Ketones Urine Blood Urine Nitrate Urine Bilirubin Urine Urobilinogen Ur Leukocyte Esterase Urine WBC (Auto) Urine RBC (Auto) Ur Squamous Epith Cells Urine Bacteria Urine HCG, Qual Stool Occult Blood Blood Type Blood Type Confirm Antibody Screen 04/02/18 04/02/18 04/02/18 07:50 07:50 11:19 WBC RBC Hgb Hct MCV MCH MCHC RDW Plt Count MPV Neut % (Auto) Lymph % (Auto) [place] % (Auto) Eos % (Auto) Baso % (Auto) Neut # (Auto) Lymph # (Auto) [place] # (Auto) Eos # (Auto) Baso # (Auto) Neutrophils % (Manual) Lymphocytes % (Manual) Monocytes % (Manual) Platelet Estimate RBC Morphology PT INR APTT Sodium Potassium Chloride Carbon Dioxide Anion Gap BUN Creatinine Est GFR ( Amer) Est GFR (Non-Af Amer) POC Glucose (mg/dL) 79 Random Glucose Lactic Acid 0.9 Calcium Phosphorus Magnesium Total Bilirubin AST ALT Alkaline Phosphatase Total Protein Albumin Globulin Albumin/Globulin Ratio Lipase Procalcitonin 29.90 H Urine Color Urine Clarity Urine pH Ur Specific [place] Urine Protein Urine Glucose (UA) Urine Ketones Urine Blood Urine Nitrate Urine Bilirubin Urine Urobilinogen Ur Leukocyte Esterase Urine WBC (Auto) Urine RBC (Auto) Ur Squamous Epith Cells Urine Bacteria Urine HCG, Qual Stool Occult Blood Blood Type Blood Type Confirm Antibody Screen Assessment & Plan (1) GI bleed Assessment and Plan: Lower GI Bleed Hypotensive Rec: Stat CBC. Colonoscopy tomorrow (if BP reasonably stable- D/W medical operations supervisor). To D/W Dr Donald- Status: Acute (2) Breast cancer Assessment and Plan: On chemotherapy f/u with dr Donald Status: Acute - Date & Time Date: 04/02/18 Time: 15:03
[2018-04-02 15:32] LABS: WHITE BLOOD COUNT 5.5 K/uL (4.8-10.8)
[2018-04-02 15:37] LABS: MEAN CELL VOLUME 87.5 fL (81.0-99.0); MEAN CORPUSCULAR HEMOGLOBIN 30.5 pg (27.0-31.0); MEAN CORPUSCULAR HGB CONC 34.9 g/dL (33.0-37.0); MEAN PLATELET VOLUME 6.7 fL (7.2-11.7); RBC 3.28 Mil/uL (3.80-5.20)
[2018-04-02] MEDS ORDERED: Bisacodyl 5mg EC Tab PO ONE (17:00)
[2018-04-02] MEDS ORDERED: Peg-Electrolyte Oral Soln 4L (Golytely) PO ONE (18:00)
--- NOTE | 2018-04-02 21:36 | CON ---
DATE: 04/02/2018 ONCOLOGY CONSULTATION HISTORY OF PRESENT ILLNESS: This is a 37-year-old woman who is being treated now for breast cancer. The patient has HER positive breast cancer and she is receiving chemotherapy at present since January with Herceptin, Perjeta, Taxotere, and carboplatin. I just saw her a few days ago on Monday, she was complaining of a little bit of diarrhea, which could be attributed to the Perjeta. She was not having abdominal pain. There was no melena, no bright red blood at that time on Monday and no abdominal pain. It was really just somewhat of a change in bowel habits. Evidently, on Monday, she started developing bright red blood per rectum. She had about five episodes of this on Monday, twice went to the hospital where she had several episodes more in the hospital, so the patient took a picture of this bright red blood with clots, relatively painless, however. PHYSICAL EXAMINATION: SKIN: No petechiae. No bruises. HEENT: Anicteric. NODES: Nonpalpable in the axillary, cervical, supraclavicular or inguinal regions. LUNGS: Clear at present. The patient is able to lie flat in bed. HEART: S1 and S2. ABDOMEN: Shows no liver, no spleen, no tenderness, no rebound, no ascites. EXTREMITIES: No edema. REBEAMER: No focal findings. LABORATORY DATA: Hemoglobin is 9.7 and she received two units of blood, it has stayed about 9.8. ASSESSMENT: She is still feeling queasy in the abdomen. She is on antibiotics. She will receive two units of blood and she will be seeing the Gastroenterology evaluation. Clinically, it seems like a possible diverticulitis, but of course, we do not know and I told her we do not know what the cause of this is. It does not seem to be related to the chemotherapy. Her blood counts in terms of the INR, which was 1.2 and the platelet count were all acceptable and not causing reason for bleeding. So, we are monitoring her and hopefully we will see what the gastroenterology evaluation shows. Miguel Donald MD [facility] # [id number]
[2018-04-03] MEDS: metroNIDAZOLE IV 500 mg/100 ml 500 MG/100 ML BAG IVPB SCH ×3 (02:53→19:37)
[2018-04-03] MEDS ORDERED: Peg-Electrolyte Oral Soln 4L (Golytely) PO ONE (06:00)
[2018-04-03 06:09] LABS: BASO % 0.3 % (0.0-2.0); HEMOGLOBIN 10.1 g/dL (11.0-16.0); LYMPH % 20.4 % (20.0-40.0); MEAN CELL VOLUME 88.7 fL (81.0-99.0); MEAN CORPUSCULAR HEMOGLOBIN 30.6 pg (27.0-31.0); MEAN CORPUSCULAR HGB CONC 34.5 g/dL (33.0-37.0); MEAN PLATELET VOLUME 7.1 fL (7.2-11.7); MONO # 0.3 K/uL (0.0-0.8); MONO % 6.2 % (0.0-10.0); NEUT # 3.6 K/uL (1.8-7.0); NEUT % 73.1 % (50.0-75.0); RBC 3.29 Mil/uL (3.80-5.20); RED CELL DISTRIBUTION WIDTH 16.2 % (11.5-14.5)
[2018-04-03] MEDS: Levothyroxine 25 MCG TAB PO SCH (06:31)
[2018-04-03] MEDS: Pantoprazole 80 MG in Sodium Chloride 0.9% 100 ML IV SCH ×2 (06:48→08:39)
[2018-04-03 06:49] LABS: ALB/GLOB RATIO 1.1 (1.0-2.1); ALBUMIN 2.9 g/dL (3.5-5.0); ALT/SGPT 32 U/L (9-52); AST/SGOT 27 U/L (14-36); BLOOD UREA NITROGEN 5 mg/dL (7-17); CALCIUM 8.1 mg/dl (8.6-10.4); GFR NON-AFRICAN AMERICAN > 60
--- NOTE | 2018-04-03 07:59 | CP.CCUPN ---
<Raudel Vanegas - Last Filed: 04/03/18 09:57> CCU Subjective - Physician Review Subjective (Free Text): 04/03/18 07:56 Patient seen and examined at bedside. Patient is going for colonoscopy today. She complains of a headache but otherwise has no other complaints. Critical Care Time Spent (in minutes): 35 CCU Objective - Vital Signs / Intake & Output Vital Signs (Last 4 hours): Vital Signs Temp Pulse Resp BP Pulse Ox 04/03/18 04:59 80 101/59 L 100 04/03/18 04:00 98.9 F 92 H 18 96 04/03/18 03:59 98/57 L Intake and Output (Last 8hrs): Intake & Output 04/02/18 04/03/18 04/03/18 22:59 06:59 14:59 Intake Total 620 280 10 Output Total 1000 Balance -380 280 10 Weight 87.362 kg Intake: Intake, IV Amount 380 280 10 Left Antecubital 300 200 Right Port-A-Cath 80 80 10 Oral 240 Output: Urine 1000 Urine, Voided 1000 Other: # Voids Urine, Voided 1 # Bowel Movements 0 - Physical Exam Head: Positive for: Atraumatic, Normocephalic Pupils: Positive for: PERRL Extroacular Muscles: Positive for: EOMI Conjunctiva: Positive for: Normal Mouth: Positive for: Moist Mucous Membranes Respiratory/Chest: Positive for: Clear to Auscultation. Negative for: Respiratory Distress, Accessory Muscle Use, Wheezes, Rales, Rhonchi Cardiovascular: Positive for: Regular Rate and Rhythm, Normal S1, S2. Negative for: Murmurs, Rub, Gallop Abdomen: Positive for: Normal Bowel Sounds. Negative for: Tenderness, Distention, Peritoneal Signs Upper Extremity: Positive for: Normal Inspection. Negative for: Edema Lower Extremity: Positive for: Normal Inspection. Negative for: Edema Neurological: Positive for: GCS=15, CN II-XII Intact Skin: Positive for: Warm, Dry, Normal Color. Negative for: Rashes Psychiatric: Positive for: Alert, Oriented x 3, Normal Insight, Normal Concentration - Medications Active Medications: Active Medications Generic Name Dose Route Start Last Admin Trade Name Freq PRN Reason Stop Dose Admin Ciprofloxacin 400 mg in 200 mls @ 133 mls/hr 04/02/18 10:30 04/02/18 22:49 Cipro 400mg/200ml Dsw IVPB 133 mls/hr Q12H MADAY Administration Protocol Metronidazole 500 mg in 100 mls @ 100 mls/hr 04/02/18 03:30 04/03/18 02:53 Flagyl IVPB 100 mls/hr Q8H MADAY Administration Protocol Pantoprazole Sodium 80 mg/ 100 mls @ 10 mls/hr 04/01/18 23:30 04/03/18 06:48 Sodium Chloride IV Not Given .Q10H MADAY 8 MG/HR Levothyroxine Sodium 25 mcg 04/02/18 06:30 04/03/18 06:45 Synthroid PO 25 mcg DAILY@0630 MADAY Administration Tramadol HCl 25 mg 04/02/18 09:11 04/02/18 18:21 Ultram PO 25 mg TID PRN Administration Headache - Patient Studies Lab Studies: Lab Studies 04/03/18 04/03/18 04/03/18 Range/Units 07:43 07:20 06:03 WBC 5.0 (4.8-10.8) K/uL RBC 3.29 L (3.80-5.20) Mil/uL Hgb 10.1 L (11.0-16.0) g/dL Hct 29.2 L (34.0-47.0) % MCV 88.7 (81.0-99.0) fL MCH 30.6 (27.0-31.0) pg MCHC 34.5 (33.0-37.0) g/dL RDW 16.2 H (11.5-14.5) % Plt Count 135 (130-400) K/uL MPV 7.1 L (7.2-11.7) fL Neut % (Auto) 73.1 (50.0-75.0) % Lymph % (Auto) 20.4 (20.0-40.0) % [place] % (Auto) 6.2 (0.0-10.0) % Eos % (Auto) 0.0 (0.0-4.0) % Baso % (Auto) 0.3 (0.0-2.0) % Neut # (Auto) 3.6 (1.8-7.0) K/uL Lymph # (Auto) 1.0 (1.0-4.3) K/uL [place] # (Auto) 0.3 (0.0-0.8) K/uL Eos # (Auto) 0.0 (0.0-0.7) K/uL Baso # (Auto) 0.0 (0.0-0.2) K/uL Neutrophils % (Manual) (50-75) % Lymphocytes % (Manual) (20-40) % Monocytes % (Manual) (0-10) % Platelet Estimate (NORMAL) RBC Morphology Sodium (132-148) mmol/L Potassium (3.6-5.2) mmol/L Chloride (98-107) mmol/L Carbon Dioxide (22-30) mmol/L Anion Gap (10-20) BUN (7-17) mg/dL Creatinine (0.7-1.2) mg/dL Est GFR ( Amer) Est GFR (Non-Af Amer) POC Glucose (mg/dL) 79 (65-110) mg/dL Random Glucose (65-105) mg/dL Lactic Acid (0.7-2.1) mmol/L Calcium (8.6-10.4) mg/dl Phosphorus (2.5-4.5) mg/dL Magnesium (1.6-2.3) mg/dL Total Bilirubin (0.2-1.3) mg/dL AST (14-36) U/L ALT (9-52) U/L Alkaline Phosphatase (38-126) U/L Total Protein (6.3-8.3) g/dL Albumin (3.5-5.0) g/dL Globulin (2.2-3.9) gm/dL Albumin/Globulin Ratio (1.0-2.1) Procalcitonin (0.19-0.49) NG/ML Free T4 (0.78-2.19) ng/dL TSH 3rd Generation (0.46-4.68) mIU/L Cortisol AM Sample (4.46-22.7) ug/dL Urine HCG, Qual Negative (NEGATIVE) 04/03/18 04/03/18 04/03/18 Range/Units 06:03 06:03 06:03 WBC (4.8-10.8) K/uL RBC (3.80-5.20) Mil/uL Hgb (11.0-16.0) g/dL Hct (34.0-47.0) % MCV (81.0-99.0) fL MCH (27.0-31.0) pg MCHC (33.0-37.0) g/dL RDW (11.5-14.5) % Plt Count (130-400) K/uL MPV (7.2-11.7) fL Neut % (Auto) (50.0-75.0) % Lymph % (Auto) (20.0-40.0) % [place] % (Auto) (0.0-10.0) % Eos % (Auto) (0.0-4.0) % Baso % (Auto) (0.0-2.0) % Neut # (Auto) (1.8-7.0) K/uL Lymph # (Auto) (1.0-4.3) K/uL [place] # (Auto) (0.0-0.8) K/uL Eos # (Auto) (0.0-0.7) K/uL Baso # (Auto) (0.0-0.2) K/uL Neutrophils % (Manual) (50-75) % Lymphocytes % (Manual) (20-40) % Monocytes % (Manual) (0-10) % Platelet Estimate (NORMAL) RBC Morphology Sodium 137 (132-148) mmol/L Potassium 3.3 L (3.6-5.2) mmol/L Chloride 103 (98-107) mmol/L Carbon Dioxide 26 (22-30) mmol/L Anion Gap 11 (10-20) BUN 5 L (7-17) mg/dL Creatinine 0.6 L (0.7-1.2) mg/dL Est GFR ( Amer) > 60 Est GFR (Non-Af Amer) > 60 POC Glucose (mg/dL) (65-110) mg/dL Random Glucose 88 (65-105) mg/dL Lactic Acid (0.7-2.1) mmol/L Calcium 8.1 L (8.6-10.4) mg/dl Phosphorus 3.2 (2.5-4.5) mg/dL Magnesium 1.9 (1.6-2.3) mg/dL Total Bilirubin 0.4 (0.2-1.3) mg/dL AST 27 (14-36) U/L ALT 32 (9-52) U/L Alkaline Phosphatase 93 (38-126) U/L Total Protein 5.7 L (6.3-8.3) g/dL Albumin 2.9 L (3.5-5.0) g/dL Globulin 2.7 (2.2-3.9) gm/dL Albumin/Globulin Ratio 1.1 (1.0-2.1) Procalcitonin (0.19-0.49) NG/ML Free T4 0.97 (0.78-2.19) ng/dL TSH 3rd Generation 0.27 L (0.46-4.68) mIU/L Cortisol AM Sample 6.7 (4.46-22.7) ug/dL Urine HCG, Qual (NEGATIVE) 04/02/18 04/02/18 04/02/18 Range/Units 21:40 16:08 15:28 WBC 5.5 (4.8-10.8) K/uL RBC 3.28 L (3.80-5.20) Mil/uL Hgb 10.0 L (11.0-16.0) g/dL Hct 28.7 L (34.0-47.0) % MCV 87.5 (81.0-99.0) fL MCH 30.5 (27.0-31.0) pg MCHC 34.9 (33.0-37.0) g/dL RDW 16.0 H (11.5-14.5) % Plt Count 131 (130-400) K/uL MPV 6.7 L (7.2-11.7) fL Neut % (Auto) (50.0-75.0) % Lymph % (Auto) (20.0-40.0) % [place] % (Auto) (0.0-10.0) % Eos % (Auto) (0.0-4.0) % Baso % (Auto) (0.0-2.0) % Neut # (Auto) (1.8-7.0) K/uL Lymph # (Auto) (1.0-4.3) K/uL [place] # (Auto) (0.0-0.8) K/uL Eos # (Auto) (0.0-0.7) K/uL Baso # (Auto) (0.0-0.2) K/uL Neutrophils % (Manual) (50-75) % Lymphocytes % (Manual) (20-40) % Monocytes % (Manual) (0-10) % Platelet Estimate (NORMAL) RBC Morphology Sodium (132-148) mmol/L Potassium (3.6-5.2) mmol/L Chloride (98-107) mmol/L Carbon Dioxide (22-30) mmol/L Anion Gap (10-20) BUN (7-17) mg/dL Creatinine (0.7-1.2) mg/dL Est GFR ( Amer) Est GFR (Non-Af Amer) POC Glucose (mg/dL) 84 87 (65-110) mg/dL Random Glucose (65-105) mg/dL Lactic Acid (0.7-2.1) mmol/L Calcium (8.6-10.4) mg/dl Phosphorus (2.5-4.5) mg/dL Magnesium (1.6-2.3) mg/dL Total Bilirubin (0.2-1.3) mg/dL AST (14-36) U/L ALT (9-52) U/L Alkaline Phosphatase (38-126) U/L Total Protein (6.3-8.3) g/dL Albumin (3.5-5.0) g/dL Globulin (2.2-3.9) gm/dL Albumin/Globulin Ratio (1.0-2.1) Procalcitonin (0.19-0.49) NG/ML Free T4 (0.78-2.19) ng/dL TSH 3rd Generation (0.46-4.68) mIU/L Cortisol AM Sample (4.46-22.7) ug/dL Urine HCG, Qual (NEGATIVE) 04/02/18 04/02/18 04/02/18 Range/Units 11:19 07:50 07:50 WBC (4.8-10.8) K/uL RBC (3.80-5.20) Mil/uL Hgb (11.0-16.0) g/dL Hct (34.0-47.0) % MCV (81.0-99.0) fL MCH (27.0-31.0) pg MCHC (33.0-37.0) g/dL RDW (11.5-14.5) % Plt Count (130-400) K/uL MPV (7.2-11.7) fL Neut % (Auto) (50.0-75.0) % Lymph % (Auto) (20.0-40.0) % [place] % (Auto) (0.0-10.0) % Eos % (Auto) (0.0-4.0) % Baso % (Auto) (0.0-2.0) % Neut # (Auto) (1.8-7.0) K/uL Lymph # (Auto) (1.0-4.3) K/uL [place] # (Auto) (0.0-0.8) K/uL Eos # (Auto) (0.0-0.7) K/uL Baso # (Auto) (0.0-0.2) K/uL Neutrophils % (Manual) (50-75) % Lymphocytes % (Manual) (20-40) % Monocytes % (Manual) (0-10) % Platelet Estimate (NORMAL) RBC Morphology Sodium (132-148) mmol/L Potassium (3.6-5.2) mmol/L Chloride (98-107) mmol/L Carbon Dioxide (22-30) mmol/L Anion Gap (10-20) BUN (7-17) mg/dL Creatinine (0.7-1.2) mg/dL Est GFR ( Amer) Est GFR (Non-Af Amer) POC Glucose (mg/dL) 79 (65-110) mg/dL Random Glucose (65-105) mg/dL Lactic Acid 0.9 (0.7-2.1) mmol/L Calcium (8.6-10.4) mg/dl Phosphorus (2.5-4.5) mg/dL Magnesium (1.6-2.3) mg/dL Total Bilirubin (0.2-1.3) mg/dL AST (14-36) U/L ALT (9-52) U/L Alkaline Phosphatase (38-126) U/L Total Protein (6.3-8.3) g/dL Albumin (3.5-5.0) g/dL Globulin (2.2-3.9) gm/dL Albumin/Globulin Ratio (1.0-2.1) Procalcitonin 29.90 H (0.19-0.49) NG/ML Free T4 (0.78-2.19) ng/dL TSH 3rd Generation (0.46-4.68) mIU/L Cortisol AM Sample (4.46-22.7) ug/dL Urine HCG, Qual (NEGATIVE) 04/02/18 04/02/18 Range/Units 07:50 07:50 WBC 7.5 D (4.8-10.8) K/uL RBC 3.17 L (3.80-5.20) Mil/uL Hgb 9.8 L (11.0-16.0) g/dL Hct 27.9 L (34.0-47.0) % MCV 88.0 (81.0-99.0) fL MCH 30.8 (27.0-31.0) pg MCHC 35.0 (33.0-37.0) g/dL RDW 16.0 H (11.5-14.5) % Plt Count 144 (130-400) K/uL MPV 6.7 L (7.2-11.7) fL Neut % (Auto) 90.1 H (50.0-75.0) % Lymph % (Auto) 6.1 L (20.0-40.0) % [place] % (Auto) 3.5 (0.0-10.0) % Eos % (Auto) 0.0 (0.0-4.0) % Baso % (Auto) 0.3 (0.0-2.0) % Neut # (Auto) 6.8 (1.8-7.0) K/uL Lymph # (Auto) 0.5 L (1.0-4.3) K/uL [place] # (Auto) 0.3 (0.0-0.8) K/uL Eos # (Auto) 0.0 (0.0-0.7) K/uL Baso # (Auto) 0.0 (0.0-0.2) K/uL Neutrophils % (Manual) 90 H (50-75) % Lymphocytes % (Manual) 6 L (20-40) % Monocytes % (Manual) 4 (0-10) % Platelet Estimate Normal (NORMAL) RBC Morphology Normal Sodium 138 (132-148) mmol/L Potassium 3.4 L (3.6-5.2) mmol/L Chloride 108 H (98-107) mmol/L Carbon Dioxide 23 (22-30) mmol/L Anion Gap 10 (10-20) BUN 12 (7-17) mg/dL Creatinine 0.7 (0.7-1.2) mg/dL Est GFR ( Amer) > 60 Est GFR (Non-Af Amer) > 60 POC Glucose (mg/dL) (65-110) mg/dL Random Glucose 86 (65-105) mg/dL Lactic Acid (0.7-2.1) mmol/L Calcium 7.3 L (8.6-10.4) mg/dl Phosphorus 3.2 (2.5-4.5) mg/dL Magnesium 1.2 L (1.6-2.3) mg/dL Total Bilirubin 1.2 (0.2-1.3) mg/dL AST 19 (14-36) U/L ALT 31 (9-52) U/L Alkaline Phosphatase 76 (38-126) U/L Total Protein 5.1 L (6.3-8.3) g/dL Albumin 2.5 L D (3.5-5.0) g/dL Globulin 2.5 (2.2-3.9) gm/dL Albumin/Globulin Ratio 1.0 (1.0-2.1) Procalcitonin (0.19-0.49) NG/ML Free T4 (0.78-2.19) ng/dL TSH 3rd Generation (0.46-4.68) mIU/L Cortisol AM Sample (4.46-22.7) ug/dL Urine HCG, Qual (NEGATIVE) Laboratory Results - last 24 hr 04/02/18 04/02/18 04/02/18 07:50 07:50 07:50 WBC 7.5 D RBC 3.17 L Hgb 9.8 L Hct 27.9 L MCV 88.0 MCH 30.8 MCHC 35.0 RDW 16.0 H Plt Count 144 MPV 6.7 L Neut % (Auto) 90.1 H Lymph % (Auto) 6.1 L [place] % (Auto) 3.5 Eos % (Auto) 0.0 Baso % (Auto) 0.3 Neut # (Auto) 6.8 Lymph # (Auto) 0.5 L [place] # (Auto) 0.3 Eos # (Auto) 0.0 Baso # (Auto) 0.0 Neutrophils % (Manual) 90 H Lymphocytes % (Manual) 6 L Monocytes % (Manual) 4 Platelet Estimate Normal RBC Morphology Normal Sodium 138 Potassium 3.4 L Chloride 108 H Carbon Dioxide 23 Anion Gap 10 BUN 12 Creatinine 0.7 Est GFR ( Amer) > 60 Est GFR (Non-Af Amer) > 60 POC Glucose (mg/dL) Random Glucose 86 Lactic Acid 0.9 Calcium 7.3 L Phosphorus 3.2 Magnesium 1.2 L Total Bilirubin 1.2 AST 19 ALT 31 Alkaline Phosphatase 76 Total Protein 5.1 L Albumin 2.5 L D Globulin 2.5 Albumin/Globulin Ratio 1.0 Procalcitonin Free T4 TSH 3rd Generation Cortisol AM Sample Urine HCG, Qual 04/02/18 04/02/18 04/02/18 07:50 11:19 15:28 WBC 5.5 RBC 3.28 L Hgb 10.0 L Hct 28.7 L MCV 87.5 MCH 30.5 MCHC 34.9 RDW 16.0 H Plt Count 131 MPV 6.7 L Neut % (Auto) Lymph % (Auto) [place] % (Auto) Eos % (Auto) Baso % (Auto) Neut # (Auto) Lymph # (Auto) [place] # (Auto) Eos # (Auto) Baso # (Auto) Neutrophils % (Manual) Lymphocytes % (Manual) Monocytes % (Manual) Platelet Estimate RBC Morphology Sodium Potassium Chloride Carbon Dioxide Anion Gap BUN Creatinine Est GFR ( Amer) Est GFR (Non-Af Amer) POC Glucose (mg/dL) 79 Random Glucose Lactic Acid Calcium Phosphorus Magnesium Total Bilirubin AST ALT Alkaline Phosphatase Total Protein Albumin Globulin Albumin/Globulin Ratio Procalcitonin 29.90 H Free T4 TSH 3rd Generation Cortisol AM Sample Urine HCG, Qual 04/02/18 04/02/18 04/03/18 16:08 21:40 06:03 WBC RBC Hgb Hct MCV MCH MCHC RDW Plt Count MPV Neut % (Auto) Lymph % (Auto) [place] % (Auto) Eos % (Auto) Baso % (Auto) Neut # (Auto) Lymph # (Auto) [place] # (Auto) Eos # (Auto) Baso # (Auto) Neutrophils % (Manual) Lymphocytes % (Manual) Monocytes % (Manual) Platelet Estimate RBC Morphology Sodium Potassium Chloride Carbon Dioxide Anion Gap BUN Creatinine Est GFR ( Amer) Est GFR (Non-Af Amer) POC Glucose (mg/dL) 87 84 Random Glucose Lactic Acid Calcium Phosphorus Magnesium Total Bilirubin AST ALT Alkaline Phosphatase Total Protein Albumin Globulin Albumin/Globulin Ratio Procalcitonin Free T4 TSH 3rd Generation Cortisol AM Sample 6.7 Urine HCG, Qual 04/03/18 04/03/18 04/03/18 06:03 06:03 06:03 WBC 5.0 RBC 3.29 L Hgb 10.1 L Hct 29.2 L MCV 88.7 MCH 30.6 MCHC 34.5 RDW 16.2 H Plt Count 135 MPV 7.1 L Neut % (Auto) 73.1 Lymph % (Auto) 20.4 [place] % (Auto) 6.2 Eos % (Auto) 0.0 Baso % (Auto) 0.3 Neut # (Auto) 3.6 Lymph # (Auto) 1.0 [place] # (Auto) 0.3 Eos # (Auto) 0.0 Baso # (Auto) 0.0 Neutrophils % (Manual) Lymphocytes % (Manual) Monocytes % (Manual) Platelet Estimate RBC Morphology Sodium 137 Potassium 3.3 L Chloride 103 Carbon Dioxide 26 Anion Gap 11 BUN 5 L Creatinine 0.6 L Est GFR ( Amer) > 60 Est GFR (Non-Af Amer) > 60 POC Glucose (mg/dL) Random Glucose 88 Lactic Acid Calcium 8.1 L Phosphorus 3.2 Magnesium 1.9 Total Bilirubin 0.4 AST 27 ALT 32 Alkaline Phosphatase 93 Total Protein 5.7 L Albumin 2.9 L Globulin 2.7 Albumin/Globulin Ratio 1.1 Procalcitonin Free T4 0.97 TSH 3rd Generation 0.27 L Cortisol AM Sample Urine HCG, Qual 04/03/18 04/03/18 07:20 07:43 WBC RBC Hgb Hct MCV MCH MCHC RDW Plt Count MPV Neut % (Auto) Lymph % (Auto) [place] % (Auto) Eos % (Auto) Baso % (Auto) Neut # (Auto) Lymph # (Auto) [place] # (Auto) Eos # (Auto) Baso # (Auto) Neutrophils % (Manual) Lymphocytes % (Manual) Monocytes % (Manual) Platelet Estimate RBC Morphology Sodium Potassium Chloride Carbon Dioxide Anion Gap BUN Creatinine Est GFR ( Amer) Est GFR (Non-Af Amer) POC Glucose (mg/dL) 79 Random Glucose Lactic Acid Calcium Phosphorus Magnesium Total Bilirubin AST ALT Alkaline Phosphatase Total Protein Albumin Globulin Albumin/Globulin Ratio Procalcitonin Free T4 TSH 3rd Generation Cortisol AM Sample Urine HCG, Qual Negative Critical Care Progress Note - Nutrition Nutrition: Nutrition Category Date Time Status NPO Diet [DIET] Diets 04/03/18 Breakfast Active Assessment/Plan - Assessment and Plan (Free Text) Assessment: Patient is a 37 year old Female with past medical history Left breast CA getting IV chemotherapy 3/6 doses, Hypothyroidism, and right LE teared tendon,presenting with bloody diarrhea. Patient is admitted to ICU for GI bleed and hypotension. Patient is going for a colonoscopy today. Plan: Neuro: Headache - Patient is AAO X 3 - Tramadol 25mg PO Q8 PRN - Head CT (04/03): No acute intracranial hemorrhage. Cardiovascular: Hypotension - Likely 2/2 diarrhea - Give fluids as needed - Continue to monitor Pulm: - No acute issues GI: Bloody diarrhea - Likely 2/2 chemotherapy vs NSAIDs use - GI consulted, Dr. Lundberg - Plan for colonoscopy on 04/03 - Protonix drip - Monitor H&H - S/p 2 units of PRBC on 04/01 Enteritis - CT abd/pelvis (04/01): Mild enteritis, no bowel obstruction, bilateral ovarian cysts - Ciprofloxacin 400mg IV Q12 (Started on 04/01) - Metronidazole 500mg IV Q8 (Started on 04/01) - GI consulted, Dr. Lundberg Heme/onc: Acute Anemia - Hb: 10.1 - S/p 2 units of PRBC on 04/01 - Continue to monitor Hx of breast cancer - Hem-onc consulted, Dr. Donald Endocrine: Hypothyroidism - Synthroid 25mg PO QD - TSH, Free T4: f/u Renal: Hypokalemia - Replete as needed - Continue to monitor : Asymptomatic UTI - UA: positive for Leuk esterase, WBC, bacteria - Ciprofloxacin 400mg IV Q12 (Started on 04/01) - Metronidazole 500mg IV Q8 (Started on 04/01) - Urine cx: f/u Prophylaxis: - SCD's - VTE prophylaxis contraindicated to GI bleed - Protonix drip Case discussed with Dr. Deep Vanegas, PGY-1 <Vamsi Adame S - Last Filed: 04/03/18 18:00> CCU Objective - Vital Signs / Intake & Output Vital Signs (Last 4 hours): Vital Signs Temp Pulse Resp BP Pulse Ox 04/03/18 16:00 97.6 F 75 18 99/60 L 96 04/03/18 15:27 80 19 108/60 98 04/03/18 14:48 71 18 98/59 L 97 04/03/18 14:27 74 18 105/62 95 Intake and Output (Last 8hrs): Intake & Output 04/03/18 04/03/18 04/03/18 06:59 14:59 22:59 Intake Total 280 820 220 Balance 280 820 220 Weight 192 lb 9.6 oz Intake: IV 250 Intake, IV Amount 280 570 Left Antecubital 200 500 Right Port-A-Cath 80 70 Oral 0 220 Other: # Voids Urine, Voided 1 - Medications Active Medications: Active Medications Generic Name Dose Route Start Last Admin Trade Name Freq PRN Reason Stop Dose Admin Ciprofloxacin 400 mg in 200 mls @ 133 mls/hr 04/02/18 10:30 04/03/18 09:30 Cipro 400mg/200ml Dsw IVPB 133 mls/hr Q12H MADAY Administration Protocol Metronidazole 500 mg in 100 mls @ 100 mls/hr 04/02/18 03:30 04/03/18 10:51 Flagyl IVPB 100 mls/hr Q8H MADAY Administration Protocol Levothyroxine Sodium 25 mcg 04/02/18 06:30 04/03/18 06:45 Synthroid PO 25 mcg DAILY@0630 MADAY Administration Pantoprazole Sodium 20 mg 04/04/18 10:00 Protonix Ec Tab PO DAILY MADAY Tramadol HCl 25 mg 04/02/18 09:11 04/03/18 16:53 Ultram PO 25 mg TID PRN Administration Headache - Patient Studies Lab Studies: Microbiology Studies 04/02/18 15:39 Urine Culture - Final Urine,Clean Catch No Growth (<1,000 CFU/ML) 04/02/18 07:51 MRSA Culture (Admit) - Final Nose MRSA NOT DETECTED Lab Studies 04/03/18 04/03/18 04/03/18 Range/Units 11:38 07:43 07:20 WBC (4.8-10.8) K/uL RBC (3.80-5.20) Mil/uL Hgb (11.0-16.0) g/dL Hct (34.0-47.0) % MCV (81.0-99.0) fL MCH (27.0-31.0) pg MCHC (33.0-37.0) g/dL RDW (11.5-14.5) % Plt Count (130-400) K/uL MPV (7.2-11.7) fL Neut % (Auto) (50.0-75.0) % Lymph % (Auto) (20.0-40.0) % [place] % (Auto) (0.0-10.0) % Eos % (Auto) (0.0-4.0) % Baso % (Auto) (0.0-2.0) % Neut # (Auto) (1.8-7.0) K/uL Lymph # (Auto) (1.0-4.3) K/uL [place] # (Auto) (0.0-0.8) K/uL Eos # (Auto) (0.0-0.7) K/uL Baso # (Auto) (0.0-0.2) K/uL Sodium (132-148) mmol/L Potassium (3.6-5.2) mmol/L Chloride (98-107) mmol/L Carbon Dioxide (22-30) mmol/L Anion Gap (10-20) BUN (7-17) mg/dL Creatinine (0.7-1.2) mg/dL Est GFR ( Amer) Est GFR (Non-Af Amer) POC Glucose (mg/dL) 83 79 (65-110) mg/dL Random Glucose (65-105) mg/dL Calcium (8.6-10.4) mg/dl Phosphorus (2.5-4.5) mg/dL Magnesium (1.6-2.3) mg/dL Total Bilirubin (0.2-1.3) mg/dL AST (14-36) U/L ALT (9-52) U/L Alkaline Phosphatase (38-126) U/L Total Protein (6.3-8.3) g/dL Albumin (3.5-5.0) g/dL Globulin (2.2-3.9) gm/dL Albumin/Globulin Ratio (1.0-2.1) Free T4 (0.78-2.19) ng/dL TSH 3rd Generation (0.46-4.68) mIU/L Cortisol AM Sample (4.46-22.7) ug/dL Urine HCG, Qual Negative (NEGATIVE) 04/03/18 04/03/18 04/03/18 Range/Units 06:03 06:03 06:03 WBC 5.0 (4.8-10.8) K/uL RBC 3.29 L (3.80-5.20) Mil/uL Hgb 10.1 L (11.0-16.0) g/dL Hct 29.2 L (34.0-47.0) % MCV 88.7 (81.0-99.0) fL MCH 30.6 (27.0-31.0) pg MCHC 34.5 (33.0-37.0) g/dL RDW 16.2 H (11.5-14.5) % Plt Count 135 (130-400) K/uL MPV 7.1 L (7.2-11.7) fL Neut % (Auto) 73.1 (50.0-75.0) % Lymph % (Auto) 20.4 (20.0-40.0) % [place] % (Auto) 6.2 (0.0-10.0) % Eos % (Auto) 0.0 (0.0-4.0) % Baso % (Auto) 0.3 (0.0-2.0) % Neut # (Auto) 3.6 (1.8-7.0) K/uL Lymph # (Auto) 1.0 (1.0-4.3) K/uL [place] # (Auto) 0.3 (0.0-0.8) K/uL Eos # (Auto) 0.0 (0.0-0.7) K/uL Baso # (Auto) 0.0 (0.0-0.2) K/uL Sodium 137 (132-148) mmol/L Potassium 3.3 L (3.6-5.2) mmol/L Chloride 103 (98-107) mmol/L Carbon Dioxide 26 (22-30) mmol/L Anion Gap 11 (10-20) BUN 5 L (7-17) mg/dL Creatinine 0.6 L (0.7-1.2) mg/dL Est GFR ( Amer) > 60 Est GFR (Non-Af Amer) > 60 POC Glucose (mg/dL) (65-110) mg/dL Random Glucose 88 (65-105) mg/dL Calcium 8.1 L (8.6-10.4) mg/dl Phosphorus 3.2 (2.5-4.5) mg/dL Magnesium 1.9 (1.6-2.3) mg/dL Total Bilirubin 0.4 (0.2-1.3) mg/dL AST 27 (14-36) U/L ALT 32 (9-52) U/L Alkaline Phosphatase 93 (38-126) U/L Total Protein 5.7 L (6.3-8.3) g/dL Albumin 2.9 L (3.5-5.0) g/dL Globulin 2.7 (2.2-3.9) gm/dL Albumin/Globulin Ratio 1.1 (1.0-2.1) Free T4 0.97 (0.78-2.19) ng/dL TSH 3rd Generation 0.27 L (0.46-4.68) mIU/L Cortisol AM Sample (4.46-22.7) ug/dL Urine HCG, Qual (NEGATIVE) 04/03/18 04/02/18 04/02/18 Range/Units 06:03 21:40 16:08 WBC (4.8-10.8) K/uL RBC (3.80-5.20) Mil/uL Hgb (11.0-16.0) g/dL Hct (34.0-47.0) % MCV (81.0-99.0) fL MCH (27.0-31.0) pg MCHC (33.0-37.0) g/dL RDW (11.5-14.5) % Plt Count (130-400) K/uL MPV (7.2-11.7) fL Neut % (Auto) (50.0-75.0) % Lymph % (Auto) (20.0-40.0) % [place] % (Auto) (0.0-10.0) % Eos % (Auto) (0.0-4.0) % Baso % (Auto) (0.0-2.0) % Neut # (Auto) (1.8-7.0) K/uL Lymph # (Auto) (1.0-4.3) K/uL [place] # (Auto) (0.0-0.8) K/uL Eos # (Auto) (0.0-0.7) K/uL Baso # (Auto) (0.0-0.2) K/uL Sodium (132-148) mmol/L Potassium (3.6-5.2) mmol/L Chloride (98-107) mmol/L Carbon Dioxide (22-30) mmol/L Anion Gap (10-20) BUN (7-17) mg/dL Creatinine (0.7-1.2) mg/dL Est GFR ( Amer) Est GFR (Non-Af Amer) POC Glucose (mg/dL) 84 87 (65-110) mg/dL Random Glucose (65-105) mg/dL Calcium (8.6-10.4) mg/dl Phosphorus (2.5-4.5) mg/dL Magnesium (1.6-2.3) mg/dL Total Bilirubin (0.2-1.3) mg/dL AST (14-36) U/L ALT (9-52) U/L Alkaline Phosphatase (38-126) U/L Total Protein (6.3-8.3) g/dL Albumin (3.5-5.0) g/dL Globulin (2.2-3.9) gm/dL Albumin/Globulin Ratio (1.0-2.1) Free T4 (0.78-2.19) ng/dL TSH 3rd Generation (0.46-4.68) mIU/L Cortisol AM Sample 6.7 (4.46-22.7) ug/dL Urine HCG, Qual (NEGATIVE) Laboratory Results - last 24 hr 04/02/18 04/02/18 04/03/18 16:08 21:40 06:03 WBC RBC Hgb Hct MCV MCH MCHC RDW Plt Count MPV Neut % (Auto) Lymph % (Auto) [place] % (Auto) Eos % (Auto) Baso % (Auto) Neut # (Auto) Lymph # (Auto) [place] # (Auto) Eos # (Auto) Baso # (Auto) Sodium Potassium Chloride Carbon Dioxide Anion Gap BUN Creatinine Est GFR ( Amer) Est GFR (Non-Af Amer) POC Glucose (mg/dL) 87 84 Random Glucose Calcium Phosphorus Magnesium Total Bilirubin AST ALT Alkaline Phosphatase Total Protein Albumin Globulin Albumin/Globulin Ratio Free T4 TSH 3rd Generation Cortisol AM Sample 6.7 Urine HCG, Qual 04/03/18 04/03/18 04/03/18 06:03 06:03 06:03 WBC 5.0 RBC 3.29 L Hgb 10.1 L Hct 29.2 L MCV 88.7 MCH 30.6 MCHC 34.5 RDW 16.2 H Plt Count 135 MPV 7.1 L Neut % (Auto) 73.1 Lymph % (Auto) 20.4 [place] % (Auto) 6.2 Eos % (Auto) 0.0 Baso % (Auto) 0.3 Neut # (Auto) 3.6 Lymph # (Auto) 1.0 [place] # (Auto) 0.3 Eos # (Auto) 0.0 Baso # (Auto) 0.0 Sodium 137 Potassium 3.3 L Chloride 103 Carbon Dioxide 26 Anion Gap 11 BUN 5 L Creatinine 0.6 L Est GFR ( Amer) > 60 Est GFR (Non-Af Amer) > 60 POC Glucose (mg/dL) Random Glucose 88 Calcium 8.1 L Phosphorus 3.2 Magnesium 1.9 Total Bilirubin 0.4 AST 27 ALT 32 Alkaline Phosphatase 93 Total Protein 5.7 L Albumin 2.9 L Globulin 2.7 Albumin/Globulin Ratio 1.1 Free T4 0.97 TSH 3rd Generation 0.27 L Cortisol AM Sample Urine HCG, Qual 04/03/18 04/03/18 04/03/18 07:20 07:43 11:38 WBC RBC Hgb Hct MCV MCH MCHC RDW Plt Count MPV Neut % (Auto) Lymph % (Auto) [place] % (Auto) Eos % (Auto) Baso % (Auto) Neut # (Auto) Lymph # (Auto) [place] # (Auto) Eos # (Auto) Baso # (Auto) Sodium Potassium Chloride Carbon Dioxide Anion Gap BUN Creatinine Est GFR ( Amer) Est GFR (Non-Af Amer) POC Glucose (mg/dL) 79 83 Random Glucose Calcium Phosphorus Magnesium Total Bilirubin AST ALT Alkaline Phosphatase Total Protein Albumin Globulin Albumin/Globulin Ratio Free T4 TSH 3rd Generation Cortisol AM Sample Urine HCG, Qual Negative Critical Care Progress Note - Nutrition Nutrition: Nutrition Category Date Time Status Regular Diet [DIET] Diets 04/03/18 Lunch Active Attending/Attestation - Attestation I have personally seen and examined this patient.: Yes I have fully participated in the care of the patient.: Yes I have reviewed all pertinent clinical information: Yes Notes (Text): 04/03/18 17:57 PATIENT SEEN AND EXAMINED IN THE INTENSIVE CARE UNIT. Status post colonoscopy with diverticulosis and hemorrhoids Status post transfusion of packed RBCs Stable to be transferred to floor Continue present treatment
--- NOTE | 2018-04-03 08:49 | CP.PCM.PN ---
Subjective - Date & Time of Evaluation Date of Evaluation: 04/03/18 Time of Evaluation: 08:30 - Subjective Subjective: Patient was seen and examined at 8:30 AM ROS: Pounding headache is still present Bilateral eye twitching right greater than left is still present but not occurring continuously Multiple bloody (but now more maroon in color than bright red before admission) bowel movements after starting bowel prep NO n/v since in the ICU Exam: General: AAOX3, NAD HEENT: NCA, EOMI, PERRLA, NO lymphadenopathy, NO pharyngeal erythema/exudate, NO thyromegaly Cardio: NS1 and NS2, NO M/R/G Resp: CTA B/L, NO R/R/W GI: BSx4, Soft, NT, ND, NO HSM, NO guarding/rebound tenderness Ext: Pulses are strong and equal, capillary refill is 2 seconds, NO edema Neuro: CN II through XII are grossly intact Assessements: 1). GI Bleed 2). Anemia likely Secondary to GI Bleed 3). Enteritis 4). Hypotension 5). Hx Left Breast CA on Chemotherapy 6). Hypothyroidism 7). Hypokalemia 8). Hypomagnesemia 9). Abnormal UA Spoke with Nurse Bellamy and patient is scheduled for Colonoscopy this afternoon at 1:30 PM S/P 2 units PRBC upon admission. HgB/Hct have remained stable despite the blood bowel movements Continue Cipro and Flagyl for the Enteritis and the possible UTI F/U with Heme/Onc Dr. Donald for Hx of Left Breast CA F/U Urine Culture Spoke with ICU resident Dr. Vanegas and will order CT Head without contrast to be done after Colonoscopy: considering the pounding headache, eye twitching, and Breast CA Hx this would be appropriate to do Florentin Steele D.O. Objective - Vital Signs/Intake and Output Vital Signs (last 24 hours): Temp Pulse Resp BP Pulse Ox 97.7 F 78 18 110/64 96 04/03/18 08:00 04/03/18 08:00 04/03/18 08:00 04/03/18 08:00 04/03/18 08:00 Intake and Output: 04/03/18 04/03/18 06:59 18:59 Intake Total 720 10 Output Total 0 Balance 720 10 - Medications Medications: Current Medications Ciprofloxacin (Cipro 400mg/200ml Dsw) 400 mg in 200 mls @ 133 mls/hr IVPB Q12H MADAY; Protocol Last Admin: 04/02/18 22:49 Dose: 133 mls/hr Metronidazole (Flagyl) 500 mg in 100 mls @ 100 mls/hr IVPB Q8H MADAY; Protocol Last Admin: 04/03/18 02:53 Dose: 100 mls/hr Pantoprazole Sodium 80 mg/ (Sodium Chloride) 100 mls @ 10 mls/hr IV .Q10H MADAY Last Admin: 04/03/18 08:39 Dose: 10 mls/hr Potassium Chloride (Potassium Chloride 20 Meq/100 Ml) 20 meq in 100 mls @ 50 m ls/hr IVPB Q2H MADAY Stop: 04/03/18 12:14 Last Admin: 04/03/18 08:32 Dose: 50 mls/hr Levothyroxine Sodium (Synthroid) 25 mcg PO DAILY@0630 MADAY Last Admin: 04/03/18 06:45 Dose: 25 mcg Tramadol HCl (Ultram) 25 mg PO TID PRN PRN Reason: Headache Last Admin: 04/02/18 18:21 Dose: 25 mg - Labs Labs: 04/03/18 06:03 04/03/18 06:03 PT 12.9 SECONDS (9.7-12.2) H 04/01/18 19:24 INR 1.2 04/01/18 19:24 APTT 22 SECONDS (21-34) 04/01/18 19:24
[2018-04-03] MEDS: Ciprofloxacin 400mg/200ml D5W 400 MG/200 ML BAG IVPB SCH ×2 (09:30→21:33)
--- NOTE | 2018-04-03 09:47 | CT ---
Date of service: 04/03/2018 PROCEDURE: CT HEAD WITHOUT CONTRAST. HISTORY: Pounding QUIROGA, Twitching of eyes, Hx Breast CA COMPARISON: None available. TECHNIQUE: Axial computed tomography images were obtained through the head/brain without intravenous contrast. Radiation dose: Total exam DLP = 1224.02 mGy-cm. This CT exam was performed using one or more of the following dose reduction techniques: Automated exposure control, adjustment of the mA and/or kV according to patient size, and/or use of iterative reconstruction technique. FINDINGS: HEMORRHAGE: No intracranial hemorrhage. BRAIN: No mass effect or edema. No atrophy or chronic microvascular ischemic changes. No gross parenchymal or extra-axial masses or collections seen to suggest metastatic disease however if metastatic disease suspected clinically, recommend follow-up of pre and post-contrast MRI which is much more sensitive for detecting small early lesions that may not be otherwise obvious on early noncontrast CT imaging.. VENTRICLES: Unremarkable. No hydrocephalus. CALVARIUM: Calvarium appears intact without evidence of suspicious lytic or blastic lesions seen.. PARANASAL SINUSES: There opacification of the left chamber of the sphenoid sinus. The partial opacification left. MASTOID AIR CELLS: Unremarkable as visualized. No inflammatory changes. OTHER FINDINGS: None. IMPRESSION: No acute intracranial hemorrhage. No gross parenchymal or extra-axial masses or collections seen to suggest metastatic disease however if metastatic disease suspected clinically, recommend follow-up of pre and post-contrast MRI which is much more sensitive for detecting small early lesions that may not be otherwise obvious on early noncontrast CT imaging..
[2018-04-03] MEDS ORDERED: Propofol 10 mg/ml Inj (20 ML) ONE (13:39)
[2018-04-03] MEDS ORDERED: Simethicone 40 mg/0.6 ml Liquid (30 ml) ONE (13:57)
--- NOTE | 2018-04-03 14:48 | CARD ---
APPROVED REPORT Date of service: 04/01/2018 EKG Measurement Heart [id number] <Conclusion> Poor data quality, interpretation may be adversely affected Sinus tachycardia Nonspecific T wave abnormality Abnormal ECG
--- NOTE | 2018-04-03 15:21 | PCM.RRT ---
RADIOLOGIC TECHNOLOGY INSTRUCTOR Nurses Assessment - Situation Date: 04/03/18 Time RADIOLOGIC TECHNOLOGY INSTRUCTOR was called: 13:07 RADIOLOGIC TECHNOLOGY INSTRUCTOR Responder Arrival Time:: 13:07 RADIOLOGIC TECHNOLOGY INSTRUCTOR Location:: I ICU Room Number: 4 RADIOLOGIC TECHNOLOGY INSTRUCTOR Reason for Call: Respiratory Distress (Code Blue), Not Responding to Urgent Treatment RADIOLOGIC TECHNOLOGY INSTRUCTOR Called By: RN - Ventilator Settings Peak Flow: 300 - Neurological Status Other (Please specify): Unresponsive - Respiratory Oxygen Delivery Method: Intubated - Constitutional Appears: Other (Unresponsive) - Head Head Exam: ATRAUMATIC, NORMOCEPHALIC - Eyes Additional Comments: Pupils fixed and dilated - Respiratory Exam Additional comments: Intubated on PRVC - Cardiovascular Exam Cardiovascular Exam: Bradycardia, +S1, +S2 - GI/Abdominal Exam GI & Abdominal Exam: Distended - Neurological Exam Neurological Exam: absent: Alert, Awake - Extremities Exam Additional comments: Bilateral LE +1 pitting edema Plan - Assessment of Findings&Treatment Plan Code brenda was called at 13:07 - Patient unresponsive, pupils were fixed and dilated - Chest compressions and manual bagging initiated - Patient received Epi X 4, ROSC was not achieved - Patient was pronounced at 13:25 - Patient's father and family members present in the ICU - PMD, Dr. Adonis Mejia notified See pronouncement note.
[2018-04-03] MEDS: Tramadol 25 mg PO PRN (16:53)
[2018-04-04] MEDS: metroNIDAZOLE IV 500 mg/100 ml 500 MG/100 ML BAG IVPB SCH ×3 (03:38→19:30)
[2018-04-04 05:49] LABS: BASO % 0.8 % (0.0-2.0); EOS % 0.1 % (0.0-4.0); HEMOGLOBIN 9.6 g/dL (11.0-16.0); LYMPH # 1.1 K/uL (1.0-4.3); MEAN CELL VOLUME 88.8 fL (81.0-99.0); MEAN CORPUSCULAR HEMOGLOBIN 30.6 pg (27.0-31.0); MEAN CORPUSCULAR HGB CONC 34.4 g/dL (33.0-37.0); MEAN PLATELET VOLUME 7.7 fL (7.2-11.7); MONO # 0.3 K/uL (0.0-0.8); MONO % 8.7 % (0.0-10.0); NEUT # 2.1 K/uL (1.8-7.0); NEUT % 59.4 % (50.0-75.0); NRBC % 0.1 % (0.0-2.0); RBC 3.13 Mil/uL (3.80-5.20); RED CELL DISTRIBUTION WIDTH 16.3 % (11.5-14.5); WHITE BLOOD COUNT 3.5 K/uL (4.8-10.8)
[2018-04-04 06:10] LABS: ALBUMIN 2.7 g/dL (3.5-5.0); ALT/SGPT 34 U/L (9-52); AST/SGOT 26 U/L (14-36); BLOOD UREA NITROGEN 5 mg/dL (7-17); CALCIUM 8.3 mg/dl (8.6-10.4); GFR NON-AFRICAN AMERICAN > 60
[2018-04-04] MEDS: Levothyroxine 25 MCG TAB PO SCH ×2 (06:29→06:31)
--- NOTE | 2018-04-04 08:24 | CP.CCUPN ---
<Raudel Vanegas - Last Filed: 04/04/18 09:39> CCU Subjective - Physician Review Subjective (Free Text): 04/04/18 07:50 Patient seen and examined at bedside. No acute events overnight. Patient is stable for transfer to [facility] floor. Critical Care Time Spent (in minutes): 35 CCU Objective - Vital Signs / Intake & Output Vital Signs (Last 4 hours): Vital Signs Pulse Resp BP Pulse Ox 04/04/18 06:09 63 13 92/58 L 98 04/04/18 06:00 63 13 97 04/04/18 05:00 61 14 95 Intake and Output (Last 8hrs): Intake & Output 04/03/18 04/04/18 04/04/18 22:59 06:59 14:59 Intake Total 780 100 Output Total 652 Balance 128 100 Intake: Intake, IV Amount 300 Right Port-A-Cath 300 Oral 480 100 Output: Urine 650 Urine, Voided 650 Stool 2 Other: # Voids Urine, Voided 200 # Bowel Movements 1 1 - Physical Exam Head: Positive for: Atraumatic, Normocephalic Pupils: Positive for: PERRL Extroacular Muscles: Positive for: EOMI Conjunctiva: Positive for: Normal Mouth: Positive for: Moist Mucous Membranes Respiratory/Chest: Positive for: Clear to Auscultation. Negative for: Respiratory Distress, Accessory Muscle Use, Wheezes, Rales, Rhonchi Cardiovascular: Positive for: Regular Rate and Rhythm, Normal S1, S2. Negative for: Murmurs, Rub, Gallop Abdomen: Positive for: Normal Bowel Sounds. Negative for: Tenderness, Distention, Peritoneal Signs Upper Extremity: Positive for: Normal Inspection. Negative for: Edema Lower Extremity: Positive for: Normal Inspection. Negative for: Edema Neurological: Positive for: GCS=15, CN II-XII Intact Skin: Positive for: Warm, Dry, Normal Color. Negative for: Rashes Psychiatric: Positive for: Alert, Oriented x 3, Normal Insight, Normal Concentration - Medications Active Medications: Active Medications Generic Name Dose Route Start Last Admin Trade Name Freq PRN Reason Stop Dose Admin Ciprofloxacin 400 mg in 200 mls @ 133 mls/hr 04/02/18 10:30 04/03/18 21:33 Cipro 400mg/200ml Dsw IVPB 133 mls/hr Q12H MADAY Administration Protocol Metronidazole 500 mg in 100 mls @ 100 mls/hr 04/02/18 03:30 04/04/18 03:38 Flagyl IVPB 100 mls/hr Q8H MADAY Administration Protocol Levothyroxine Sodium 25 mcg 04/02/18 06:30 04/04/18 06:31 Synthroid PO 25 mcg DAILY@0630 MADAY Administration Pantoprazole Sodium 20 mg 04/04/18 10:00 Protonix Ec Tab PO DAILY MADAY Tramadol HCl 25 mg 04/02/18 09:11 04/03/18 16:53 Ultram PO 25 mg TID PRN Administration Headache - Patient Studies Lab Studies: Microbiology Studies 04/02/18 15:39 Urine Culture - Final Urine,Clean Catch No Growth (<1,000 CFU/ML) 04/02/18 07:51 MRSA Culture (Admit) - Final Nose MRSA NOT DETECTED Lab Studies 04/04/18 04/04/18 04/03/18 Range/Units 05:42 05:42 11:38 WBC 3.5 L (4.8-10.8) K/uL RBC 3.13 L (3.80-5.20) Mil/uL Hgb 9.6 L (11.0-16.0) g/dL Hct 27.7 L (34.0-47.0) % MCV 88.8 (81.0-99.0) fL MCH 30.6 (27.0-31.0) pg MCHC 34.4 (33.0-37.0) g/dL RDW 16.3 H (11.5-14.5) % Plt Count 110 L D (130-400) K/uL MPV 7.7 (7.2-11.7) fL Neut % (Auto) 59.4 (50.0-75.0) % Lymph % (Auto) 31.0 (20.0-40.0) % [place] % (Auto) 8.7 (0.0-10.0) % Eos % (Auto) 0.1 (0.0-4.0) % Baso % (Auto) 0.8 (0.0-2.0) % Neut # (Auto) 2.1 (1.8-7.0) K/uL Lymph # (Auto) 1.1 (1.0-4.3) K/uL [place] # (Auto) 0.3 (0.0-0.8) K/uL Eos # (Auto) 0.0 (0.0-0.7) K/uL Baso # (Auto) 0.0 (0.0-0.2) K/uL Sodium 135 (132-148) mmol/L Potassium 3.6 (3.6-5.2) mmol/L Chloride 103 (98-107) mmol/L Carbon Dioxide 25 (22-30) mmol/L Anion Gap 11 (10-20) BUN 5 L (7-17) mg/dL Creatinine 0.6 L (0.7-1.2) mg/dL Est GFR ( Amer) > 60 Est GFR (Non-Af Amer) > 60 POC Glucose (mg/dL) 83 (65-110) mg/dL Random Glucose 81 (65-105) mg/dL Calcium 8.3 L (8.6-10.4) mg/dl Phosphorus 3.6 (2.5-4.5) mg/dL Magnesium 1.8 (1.6-2.3) mg/dL Total Bilirubin 0.4 (0.2-1.3) mg/dL AST 26 (14-36) U/L ALT 34 (9-52) U/L Alkaline Phosphatase 81 (38-126) U/L Total Protein 5.4 L (6.3-8.3) g/dL Albumin 2.7 L (3.5-5.0) g/dL Globulin 2.7 (2.2-3.9) gm/dL Albumin/Globulin Ratio 1.0 (1.0-2.1) Laboratory Results - last 24 hr 04/03/18 04/04/18 04/04/18 11:38 05:42 05:42 WBC 3.5 L RBC 3.13 L Hgb 9.6 L Hct 27.7 L MCV 88.8 MCH 30.6 MCHC 34.4 RDW 16.3 H Plt Count 110 L D MPV 7.7 Neut % (Auto) 59.4 Lymph % (Auto) 31.0 [place] % (Auto) 8.7 Eos % (Auto) 0.1 Baso % (Auto) 0.8 Neut # (Auto) 2.1 Lymph # (Auto) 1.1 [place] # (Auto) 0.3 Eos # (Auto) 0.0 Baso # (Auto) 0.0 Sodium 135 Potassium 3.6 Chloride 103 Carbon Dioxide 25 Anion Gap 11 BUN 5 L Creatinine 0.6 L Est GFR ( Amer) > 60 Est GFR (Non-Af Amer) > 60 POC Glucose (mg/dL) 83 Random Glucose 81 Calcium 8.3 L Phosphorus 3.6 Magnesium 1.8 Total Bilirubin 0.4 AST 26 ALT 34 Alkaline Phosphatase 81 Total Protein 5.4 L Albumin 2.7 L Globulin 2.7 Albumin/Globulin Ratio 1.0 Fingerstick Blood Sugar Results: 83 Critical Care Progress Note - Nutrition Nutrition: Nutrition Category Date Time Status Regular Diet [DIET] Diets 04/03/18 Lunch Active Assessment/Plan - Assessment and Plan (Free Text) Assessment: Patient is a 37 year old Female with past medical history Left breast CA getting IV chemotherapy 3/6 doses, Hypothyroidism, and right LE teared tendon,presenting with bloody diarrhea. Patient is admitted to ICU for GI bleed and hypotension. Patient had a colonoscopy on 04/03 that showed right-sided diverticulosis and hemorrhoids with ulceration. Plan: Neuro: Headache - Patient is AAO X 3 - Tramadol 25mg PO Q8 PRN - Head CT (04/03): No acute intracranial hemorrhage. Cardiovascular: Hypotension - Likely 2/2 diarrhea - Give fluids as needed - Continue to monitor Pulm: - No acute issues GI: Bloody diarrhea - Likely 2/2 chemotherapy vs NSAIDs use - GI consulted, Dr. Lundberg - Colonoscopy on 04/03 showed right-sided diverticulosis and hemorrhoids with ulceration - Protonix 40mg IV QD - Monitor H&H - S/p 2 units of PRBC on 04/01 Enteritis - CT abd/pelvis (04/01): Mild enteritis, no bowel obstruction, bilateral ovarian cysts - Ciprofloxacin 400mg IV Q12 (Started on 04/01) - Metronidazole 500mg IV Q8 (Started on 04/01) - GI consulted, Dr. Lundberg Heme/onc: Normocytic Anemia - Hb: 10.1 --> 9.6 - S/p 2 units of PRBC on 04/01 - Continue to monitor Hx of breast cancer - Hem-onc consulted, Dr. Donald Endocrine: Hypothyroidism - Synthroid 25mg PO QD - TSH: 0.27 - Free T4: 0.97 Renal: Hypokalemia - Replete as needed - Continue to monitor : Asymptomatic UTI - UA: positive for Leuk esterase, WBC, bacteria - Ciprofloxacin 400mg IV Q12 (Started on 04/01) - Metronidazole 500mg IV Q8 (Started on 04/01) - Urine cx: no growth to date Prophylaxis: - SCD's - VTE prophylaxis contraindicated to GI bleed - Protonix 40mg IV QD Case discussed with Dr. Deep Vanegas, PGY-1 <Vamsi Adame - Last Filed: 04/04/18 16:11> CCU Objective - Vital Signs / Intake & Output Vital Signs (Last 4 hours): Vital Signs Pulse Resp BP Pulse Ox 04/04/18 14:09 64 15 93 L 04/04/18 14:00 67 15 95 04/04/18 13:09 101/65 04/04/18 13:00 69 16 96 04/04/18 12:09 82 17 114/79 98 Intake and Output (Last 8hrs): Intake & Output 04/04/18 04/04/18 04/04/18 06:59 14:59 22:59 Intake Total 100 1020 Balance 100 1020 Intake: Intake, IV Amount 300 Right Port-A-Cath 300 Oral 100 720 Other: # Voids Urine, Voided 200 1 # Bowel Movements 1 1 - Medications Active Medications: Active Medications Generic Name Dose Route Start Last Admin Trade Name Freq PRN Reason Stop Dose Admin Hydrocortisone 2.5 gm 04/04/18 18:00 Anusol-Hc [place] BID MADAY Ciprofloxacin 400 mg in 200 mls @ 133 mls/hr 04/02/18 10:30 04/04/18 09:32 Cipro 400mg/200ml Dsw IVPB 133 mls/hr Q12H MADAY Administration Protocol Metronidazole 500 mg in 100 mls @ 100 mls/hr 04/02/18 03:30 04/04/18 11:10 Flagyl IVPB 100 mls/hr Q8H MADAY Administration Protocol Levothyroxine Sodium 25 mcg 04/02/18 06:30 04/04/18 06:31 Synthroid PO 25 mcg DAILY@0630 MADAY Administration Morphine Sulfate 2 mg 04/04/18 12:19 04/04/18 12:35 Morphine IVP 2 mg Q4H PRN Administration Pain, moderate (4-7) Pantoprazole Sodium 40 mg 04/04/18 10:00 04/04/18 11:12 Protonix Ec Tab PO 40 mg DAILY MADAY Administration Tramadol HCl 25 mg 04/02/18 09:11 04/03/18 16:53 Ultram PO 25 mg TID PRN Administration Headache - Patient Studies Lab Studies: Microbiology Studies 04/02/18 15:39 Urine Culture - Final Urine,Clean Catch No Growth (<1,000 CFU/ML) 04/02/18 07:51 MRSA Culture (Admit) - Final Nose MRSA NOT DETECTED Lab Studies 04/04/18 04/04/18 Range/Units 05:42 05:42 WBC 3.5 L (4.8-10.8) K/uL RBC 3.13 L (3.80-5.20) Mil/uL Hgb 9.6 L (11.0-16.0) g/dL Hct 27.7 L (34.0-47.0) % MCV 88.8 (81.0-99.0) fL MCH 30.6 (27.0-31.0) pg MCHC 34.4 (33.0-37.0) g/dL RDW 16.3 H (11.5-14.5) % Plt Count 110 L D (130-400) K/uL MPV 7.7 (7.2-11.7) fL Neut % (Auto) 59.4 (50.0-75.0) % Lymph % (Auto) 31.0 (20.0-40.0) % [place] % (Auto) 8.7 (0.0-10.0) % Eos % (Auto) 0.1 (0.0-4.0) % Baso % (Auto) 0.8 (0.0-2.0) % Neut # (Auto) 2.1 (1.8-7.0) K/uL Lymph # (Auto) 1.1 (1.0-4.3) K/uL [place] # (Auto) 0.3 (0.0-0.8) K/uL Eos # (Auto) 0.0 (0.0-0.7) K/uL Baso # (Auto) 0.0 (0.0-0.2) K/uL Differential Comment Sodium 135 (132-148) mmol/L Potassium 3.6 (3.6-5.2) mmol/L Chloride 103 (98-107) mmol/L Carbon Dioxide 25 (22-30) mmol/L Anion Gap 11 (10-20) BUN 5 L (7-17) mg/dL Creatinine 0.6 L (0.7-1.2) mg/dL Est GFR ( Amer) > 60 Est GFR (Non-Af Amer) > 60 Random Glucose 81 (65-105) mg/dL Calcium 8.3 L (8.6-10.4) mg/dl Phosphorus 3.6 (2.5-4.5) mg/dL Magnesium 1.8 (1.6-2.3) mg/dL Total Bilirubin 0.4 (0.2-1.3) mg/dL AST 26 (14-36) U/L ALT 34 (9-52) U/L Alkaline Phosphatase 81 (38-126) U/L Total Protein 5.4 L (6.3-8.3) g/dL Albumin 2.7 L (3.5-5.0) g/dL Globulin 2.7 (2.2-3.9) gm/dL Albumin/Globulin Ratio 1.0 (1.0-2.1) Laboratory Results - last 24 hr 04/04/18 04/04/18 05:42 05:42 WBC 3.5 L RBC 3.13 L Hgb 9.6 L Hct 27.7 L MCV 88.8 MCH 30.6 MCHC 34.4 RDW 16.3 H Plt Count 110 L D MPV 7.7 Neut % (Auto) 59.4 Lymph % (Auto) 31.0 [place] % (Auto) 8.7 Eos % (Auto) 0.1 Baso % (Auto) 0.8 Neut # (Auto) 2.1 Lymph # (Auto) 1.1 [place] # (Auto) 0.3 Eos # (Auto) 0.0 Baso # (Auto) 0.0 Differential Comment Sodium 135 Potassium 3.6 Chloride 103 Carbon Dioxide 25 Anion Gap 11 BUN 5 L Creatinine 0.6 L Est GFR ( Amer) > 60 Est GFR (Non-Af Amer) > 60 Random Glucose 81 Calcium 8.3 L Phosphorus 3.6 Magnesium 1.8 Total Bilirubin 0.4 AST 26 ALT 34 Alkaline Phosphatase 81 Total Protein 5.4 L Albumin 2.7 L Globulin 2.7 Albumin/Globulin Ratio 1.0 Critical Care Progress Note - Nutrition Nutrition: Nutrition Category Date Time Status Regular Diet [DIET] Diets 04/03/18 Lunch Active Attending/Attestation - Attestation I have personally seen and examined this patient.: Yes I have fully participated in the care of the patient.: Yes I have reviewed all pertinent clinical information: Yes Notes (Text): 04/04/18 16:08 Patient seen and examined in the intensive care unit. Status post colonocsopy No active bleeding H&H stable Transfer to floor
[2018-04-04] MEDS: Ciprofloxacin 400mg/200ml D5W 400 MG/200 ML BAG IVPB SCH ×2 (09:32→22:00)
[2018-04-04] MEDS ORDERED: Pantoprazole 20 mg EC Tab PO SCH (10:00)
[2018-04-04] MEDS: Pantoprazole 40 mg EC Tab PO SCH (11:12)
--- NOTE | 2018-04-04 11:29 | CP.PCM.PN ---
Subjective - Date & Time of Evaluation Date of Evaluation: 04/04/18 Time of Evaluation: 11:28 - Subjective Subjective: f/u rectal bleed no further bleeding or diarrhea Anal ulcer Hgb stable Topical care ordered Objective - Vital Signs/Intake and Output Vital Signs (last 24 hours): Temp Pulse Resp BP Pulse Ox 98.6 F 79 15 87/47 L 99 04/04/18 08:00 04/04/18 10:00 04/04/18 10:00 04/04/18 10:09 04/04/18 10:00 Intake and Output: 04/04/18 04/04/18 06:59 18:59 Intake Total 585 560 Balance 585 560 - Medications Medications: Current Medications Ciprofloxacin (Cipro 400mg/200ml Dsw) 400 mg in 200 mls @ 133 mls/hr IVPB Q12H MADAY; Protocol Last Admin: 04/04/18 09:32 Dose: 133 mls/hr Metronidazole (Flagyl) 500 mg in 100 mls @ 100 mls/hr IVPB Q8H MADAY; Protocol Last Admin: 04/04/18 11:10 Dose: 100 mls/hr Levothyroxine Sodium (Synthroid) 25 mcg PO DAILY@0630 MADAY Last Admin: 04/04/18 06:31 Dose: 25 mcg Pantoprazole Sodium (Protonix Ec Tab) 40 mg PO DAILY [facility] Last Admin: 04/04/18 11:12 Dose: 40 mg Tramadol HCl (Ultram) 25 mg PO TID PRN PRN Reason: Headache Last Admin: 04/03/18 16:53 Dose: 25 mg - Labs Labs: 04/04/18 05:42 04/04/18 05:42 PT 12.9 SECONDS (9.7-12.2) H 04/01/18 19:24 INR 1.2 04/01/18 19:24 APTT 22 SECONDS (21-34) 04/01/18 19:24 - Constitutional Appears: Well - Respiratory Exam Respiratory Exam: NORMAL BREATHING PATTERN - Cardiovascular Exam Cardiovascular Exam: REGULAR RHYTHM - GI/Abdominal Exam GI & Abdominal Exam: Soft. absent: Tenderness Assessment and Plan (1) GI bleed Assessment & Plan: stable. Anal ulcer Rec: sitz baths, and topical cream Status: Acute (2) Breast cancer Status: Acute
[2018-04-04] MEDS: Hydrocortisone 2.5% Rectal Cream(30 gm) PR SCH (18:07)
--- NOTE | 2018-04-04 18:43 | CP.PCM.PN ---
Subjective - Date & Time of Evaluation Date of Evaluation: 04/04/18 Time of Evaluation: 16:00 - Subjective Subjective: Patient was seen and examined at 4:00 PM ROS: Pounding headache is still present Bilateral eye twitching right greater than left is still present but not occurring continuously Two(but now more maroon in color than bright red before admission) bowel movements NO n/v since in the ICU Exam: General: AAOX3, NAD HEENT: NCA, EOMI, PERRLA, NO lymphadenopathy, NO pharyngeal erythema/exudate, NO thyromegaly Cardio: NS1 and NS2, NO M/R/G Resp: CTA B/L, NO R/R/W GI: BSx4, Soft, NT, ND, NO HSM, NO guarding/rebound tenderness Ext: Pulses are strong and equal, capillary refill is 2 seconds, NO edema Neuro: CN II through XII are grossly intact Assessements: 1). GI Bleed 2). Anemia likely Secondary to GI Bleed 3). Enteritis 4). Hypotension 5). Hx Left Breast CA on Chemotherapy 6). Hypothyroidism 7). Hypokalemia 8). Hypomagnesemia 9). Abnormal UA Colonoscopy performed 04/03/18 indicated anal ulcer and internal hermorrhoids as likely cause of bleed: Hydrocortisone Topical ordered by GI and will need follow up with Dr. Ortega in the office in 3 weeks S/P 2 units PRBC upon admission. HgB/Hct have remained stable despite the blood bowel movements Continue Cipro and Flagyl for the Enteritis Urine Culture did not show any growth. There are NO urinary complaints F/U with Heme/Onc Dr. Donald for Hx of Left Breast CA CT Head did not show any acute stroke/hemorrhage or masses. However considering the patient's history of Breast CA, I have ordered MRI Brain for morning 04/05/18 and patient is agreeable. Hypokalemia and Hypomagnesemia have resolved Blood pressure is better today Will likely DC patient on morning 04/04/18 after performance of MRI Brain. She has appointment with Rubber Moulding Machine Operator/Oncologist Dr. Donald for next Chemotherapy Tx on Monday04/09/18 as per patient. Florentin Steele DNellieONellie Objective - Vital Signs/Intake and Output Vital Signs (last 24 hours): Temp Pulse Resp BP Pulse Ox 98.6 F 66 16 112/66 91 L 04/04/18 16:00 04/04/18 17:09 04/04/18 17:09 04/04/18 17:09 04/04/18 17:09 Intake and Output: 04/04/18 04/04/18 06:59 18:59 Intake Total 585 1260 Balance 585 1260 - Medications Medications: Current Medications Hydrocortisone (Anusol-Hc) 2.5 gm MA BID [facility] Last Admin: 04/04/18 18:07 Dose: 1 applic Ciprofloxacin (Cipro 400mg/200ml Dsw) 400 mg in 200 mls @ 133 mls/hr IVPB Q12H MADAY; Protocol Last Admin: 04/04/18 09:32 Dose: 133 mls/hr Metronidazole (Flagyl) 500 mg in 100 mls @ 100 mls/hr IVPB Q8H MADAY; Protocol Last Admin: 04/04/18 11:10 Dose: 100 mls/hr Levothyroxine Sodium (Synthroid) 25 mcg PO DAILY@0630 [facility] Last Admin: 04/04/18 06:31 Dose: 25 mcg Lorazepam (Ativan) 0.5 mg IVP ONCE PRN PRN Reason: Anxiety Morphine Sulfate (Morphine) 2 mg IVP Q4H PRN PRN Reason: Pain, moderate (4-7) Last Admin: 04/04/18 12:35 Dose: 2 mg Pantoprazole Sodium (Protonix Ec Tab) 40 mg PO DAILY [facility] Last Admin: 04/04/18 11:12 Dose: 40 mg Tramadol HCl (Ultram) 25 mg PO TID PRN PRN Reason: Headache Last Admin: 04/03/18 16:53 Dose: 25 mg - Labs Labs: 04/04/18 05:42 04/04/18 05:42 PT 12.9 SECONDS (9.7-12.2) H 04/01/18 19:24 INR 1.2 04/01/18 19:24 APTT 22 SECONDS (21-34) 04/01/18 19:24
[2018-04-04 19:20] VITALS: O2SAT 96
[2018-04-05] MEDS ORDERED: Gadodiamide 287 mg/ml 20 ml IV ONE (02:36)
[2018-04-05] MEDS: metroNIDAZOLE IV 500 mg/100 ml 500 MG/100 ML BAG IVPB SCH ×2 (03:30→12:04)
[2018-04-05 06:15] LABS: BASO % 0.6 % (0.0-2.0); EOS % 0.1 % (0.0-4.0); HEMOGLOBIN 9.6 g/dL (11.0-16.0); LYMPH # 1.2 K/uL (1.0-4.3); MEAN CELL VOLUME 89.4 fL (81.0-99.0); MEAN CORPUSCULAR HEMOGLOBIN 30.5 pg (27.0-31.0); MEAN CORPUSCULAR HGB CONC 34.1 g/dL (33.0-37.0); MEAN PLATELET VOLUME 7.2 fL (7.2-11.7); MONO # 0.3 K/uL (0.0-0.8); MONO % 8.2 % (0.0-10.0); NEUT # 1.7 K/uL (1.8-7.0); NEUT % 54.1 % (50.0-75.0); NRBC % 0.1 % (0.0-2.0); RBC 3.13 Mil/uL (3.80-5.20); WHITE BLOOD COUNT 3.1 K/uL (4.8-10.8)
[2018-04-05 06:39] LABS: ALB/GLOB RATIO 1.1 (1.0-2.1); ALBUMIN 2.9 g/dL (3.5-5.0); ALT/SGPT 30 U/L (9-52); AST/SGOT 19 U/L (14-36); BLOOD UREA NITROGEN 4 mg/dL (7-17); CALCIUM 8.2 mg/dl (8.6-10.4); GFR NON-AFRICAN AMERICAN > 60
[2018-04-05] MEDS: Levothyroxine 25 MCG TAB PO SCH (07:17)
[2018-04-05] MEDS ORDERED: Potassium Chloride 20 mEq ER Tab PO ONE (08:00)
[2018-04-05] MEDS: Ciprofloxacin 400mg/200ml D5W 400 MG/200 ML BAG IVPB SCH (10:11)
[2018-04-05] MEDS: Hydrocortisone 2.5% Rectal Cream(30 gm) PR SCH (10:11)
[2018-04-05] MEDS: Pantoprazole 40 mg EC Tab PO SCH (10:11)
--- NOTE | 2018-04-05 10:47 | CP.PCM.PN ---
Subjective - Date & Time of Evaluation Date of Evaluation: 04/05/18 Time of Evaluation: 10:44 - Subjective Subjective: f/u RB. Pt seen with RN. Denies Rb, melena, fever, chills, SZ, LOC, QUIROGA, cough, abd pain. Reports bad QUIROGA Objective - Vital Signs/Intake and Output Vital Signs (last 24 hours): Temp Pulse Resp BP Pulse Ox 98.2 F 68 18 90/64 L 96 04/05/18 00:00 04/05/18 00:00 04/05/18 00:00 04/05/18 00:00 04/05/18 00:00 Intake and Output: 04/05/18 04/05/18 06:59 18:59 Intake Total 880 Output Total 500 Balance 380 - Medications Medications: Current Medications Hydrocortisone (Anusol-Hc) 2.5 gm WI BID [facility] Last Admin: 04/05/18 10:11 Dose: 1 applic Ciprofloxacin (Cipro 400mg/200ml Dsw) 400 mg in 200 mls @ 133 mls/hr IVPB Q12H [facility]; Protocol Last Admin: 04/05/18 10:11 Dose: 133 mls/hr Metronidazole (Flagyl) 500 mg in 100 mls @ 100 mls/hr IVPB Q8H [facility]; Protocol Last Admin: 04/05/18 03:30 Dose: 100 mls/hr Levothyroxine Sodium (Synthroid) 25 mcg PO DAILY@0630 [facility] Last Admin: 04/05/18 07:17 Dose: 25 mcg Lorazepam (Ativan) 0.5 mg IVP ONCE PRN PRN Reason: Anxiety Morphine Sulfate (Morphine) 2 mg IVP Q4H PRN PRN Reason: Pain, moderate (4-7) Last Admin: 04/05/18 09:12 Dose: 2 mg Pantoprazole Sodium (Protonix Ec Tab) 40 mg PO DAILY [facility] Last Admin: 04/05/18 10:11 Dose: 40 mg Tramadol HCl (Ultram) 25 mg PO TID PRN PRN Reason: Headache Last Admin: 04/03/18 16:53 Dose: 25 mg - Labs Labs: 04/05/18 06:09 04/05/18 06:09 PT 12.9 SECONDS (9.7-12.2) H 04/01/18 19:24 INR 1.2 04/01/18 19:24 APTT 22 SECONDS (21-34) 04/01/18 19:24 - Constitutional Appears: Well - Respiratory Exam Respiratory Exam: Clear to Ausculation Bilateral - Cardiovascular Exam Cardiovascular Exam: RRR - GI/Abdominal Exam GI & Abdominal Exam: Soft, Normal Bowel Sounds. absent: Guarding, Tenderness, Hernia, Mass, Rebound - Neurological Exam Neurological Exam: Alert, Oriented x3 Assessment and Plan (1) Internal hemorrhoid Assessment & Plan: with overlying ulcer. Likely from diarrhea Status: Acute (2) Diverticulosis Assessment & Plan: Not the cause for bleeding Status: Acute (3) Abdominal pain Status: Acute (4) Breast cancer Status: Acute (5) Diarrhea Assessment & Plan: after chemos. Due to hemorhoids and ulcer, IT IS IMPORTANT TO CONTROL DIARRHEA/ REC_ check stool for infections immodium carafate. Status: Acute (6) GI bleed Assessment & Plan: from ulcer on hemorrhodis Status: Acute
[2018-04-05 11:18] VITALS: BP 97/54; PULSE 60; RESP 16; TEMP 98.3
--- NOTE | 2018-04-05 16:37 | MRI ---
Date of service: 04/05/2018 PROCEDURE: MRI BRAIN WITH AND WITHOUT CONTRAST HISTORY: Rule out metastasis. COMPARISON: Comparison made with prior CT scan of the brain 04/03/2018. TECHNIQUE: Multiplanar, multisequence MR images of the brain were obtained with and without intravenous contrast enhancement. FINDINGS: HEMORRHAGE: No acute parenchymal, subarachnoid or extra-axial hemorrhage. No evidence of hemosiderin deposition is identified on gradient echo weighted sequence. DWI: No evidence of an acute or early subacute infarction seen on diffusion imaging.. BRAIN PARENCHYMA: There are several small focal areas of nonenhancing nonspecific increased T2 signal seen within the frontal subcortical white matter bilaterally. The largest of which is located on axial image number 17. These findings are nonspecific and could represent chronic sequela of small vessel disease . Additional differential diagnostic considerations would include sequela of migraine headaches, old trauma, post infectious/inflammatory etiologies.. Sequela of chemotherapy would typically be expected to be more diffuse in appearance changes are not felt to represent metastatic lesions. ENHANCEMENT: No evidence of abnormal enhancing parenchymal nor extra-axial masses or collections. No evidence of unusual meningeal enhancement. VENTRICLES: No obstructive hydrocephalus. CRANIUM: Unremarkable. ORBITS: Orbits and contents appear grossly unremarkable.. PARANASAL SINUSES/MASTOIDS: There is opacification left chamber sphenoid sinus VASCULAR SYSTEM: Visualized major vascular flow voids at skull base patent.. OTHER FINDINGS: Questionable tiny Tornwaldt cyst. Posterior superior nasopharynx.. IMPRESSION: No evidence of acute intracranial hemorrhage or infarct. There are several small nonenhancing nonspecific focal areas of increased T2 signal seen scattered about subcortical white matter both frontal lobes the largest in the left frontal operculum region as above. These findings are nonspecific and could represent chronic sequela of small vessel disease. See above discussion for additional differential diagnostic considerations. No evidence to suggest brain metastases. Questionable tiny normal cyst as above. There is opacification left chamber sphenoid sinus.
--- NOTE | 2018-04-05 18:26 | CP.PCM.DIS ---
Provider - Provider Date of Admission: 04/01/18 23:15 Attending physician: Hardik Beauchamp MD Consults: 04/02/18 00:45 Gastroenterology Consult Routine Comment: Consulting Provider: Timi Lundberg Consulting Physician: Timi Lundberg Reason for Consult: Bloody diarrhea x 5, hx lf breast CA 04/02/18 00:48 Hematology Oncology Consult Routine Comment: Consulting Provider: Miguel Donald Consulting Physician: Miguel Donald Reason for Consult: bloody diarrhea, hx of left Breast CA Time Spent in preparation of Discharge (in minutes): 35 Diagnosis - Discharge Diagnosis (1) Anal ulcer Status: Acute (2) Abdominal pain Status: Resolved (3) Breast cancer Status: Chronic (4) Diverticulosis Status: Acute (5) GI bleed Status: Resolved Hospital Course - Lab Results Lab Results: Micro Results 04/02/18 15:39 Urine,Clean Catch Urine Culture - Final No Growth (<1,000 CFU/ML) 04/02/18 07:51 Nose MRSA Culture (Admit) - Final MRSA NOT DETECTED Most Recent Lab Values WBC 3.1 K/uL (4.8-10.8) L 04/05/18 06:09 RBC 3.13 Mil/uL (3.80-5.20) L 04/05/18 06:09 Hgb 9.6 g/dL (11.0-16.0) L 04/05/18 06:09 Hct 28.0 % (34.0-47.0) L 04/05/18 06:09 MCV 89.4 fL (81.0-99.0) 04/05/18 06:09 MCH 30.5 pg (27.0-31.0) 04/05/18 06:09 MCHC 34.1 g/dL (33.0-37.0) 04/05/18 06:09 RDW 16.0 % (11.5-14.5) H 04/05/18 06:09 Plt Count 136 K/uL (130-400) 04/05/18 06:09 MPV 7.2 fL (7.2-11.7) 04/05/18 06:09 Neut % (Auto) 54.1 % (50.0-75.0) 04/05/18 06:09 Lymph % (Auto) 37.0 % (20.0-40.0) 04/05/18 06:09 [place] % (Auto) 8.2 % (0.0-10.0) 04/05/18 06:09 Eos % (Auto) 0.1 % (0.0-4.0) 04/05/18 06:09 Baso % (Auto) 0.6 % (0.0-2.0) 04/05/18 06:09 Neut # (Auto) 1.7 K/uL (1.8-7.0) L 04/05/18 06:09 Lymph # (Auto) 1.2 K/uL (1.0-4.3) 04/05/18 06:09 [place] # (Auto) 0.3 K/uL (0.0-0.8) 04/05/18 06:09 Eos # (Auto) 0.0 K/uL (0.0-0.7) 04/05/18 06:09 Baso # (Auto) 0.0 K/uL (0.0-0.2) 04/05/18 06:09 Neutrophils % (Manual) 90 % (50-75) H 04/02/18 07:50 Lymphocytes % (Manual) 6 % (20-40) L 04/02/18 07:50 Monocytes % (Manual) 4 % (0-10) 04/02/18 07:50 Differential Comment 04/04/18 05:42 Platelet Estimate Normal (NORMAL) 04/02/18 07:50 RBC Morphology Normal 04/02/18 07:50 PT 12.9 SECONDS (9.7-12.2) H 04/01/18 19:24 INR 1.2 04/01/18 19:24 APTT 22 SECONDS (21-34) 04/01/18 19:24 Sodium 138 mmol/L (132-148) 04/05/18 06:09 Potassium 3.5 mmol/L (3.6-5.2) L 04/05/18 06:09 Chloride 103 mmol/L (98-107) 04/05/18 06:09 Carbon Dioxide 28 mmol/L (22-30) 04/05/18 06:09 Anion Gap 11 (10-20) 04/05/18 06:09 BUN 4 mg/dL (7-17) L 12/13/18 06:09 Creatinine 0.6 mg/dL (0.7-1.2) L 04/05/18 06:09 Est GFR ( Amer) > 60 04/05/18 06:09 Est GFR (Non-Af Amer) > 60 04/05/18 06:09 POC Glucose (mg/dL) 83 mg/dL (65-110) 04/03/18 11:38 Random Glucose 92 mg/dL (65-105) 04/05/18 06:09 Lactic Acid 0.9 mmol/L (0.7-2.1) 04/02/18 07:50 Calcium 8.2 mg/dl (8.6-10.4) L 04/05/18 06:09 Phosphorus 4.0 mg/dL (2.5-4.5) 04/05/18 06:09 Magnesium 1.8 mg/dL (1.6-2.3) 04/05/18 06:09 Total Bilirubin 0.3 mg/dL (0.2-1.3) 04/05/18 06:09 AST 19 U/L (14-36) 04/05/18 06:09 ALT 30 U/L (9-52) 04/05/18 06:09 Alkaline Phosphatase 95 U/L (38-126) 04/05/18 06:09 Total Protein 5.7 g/dL (6.3-8.3) L 04/05/18 06:09 Albumin 2.9 g/dL (3.5-5.0) L 04/05/18 06:09 Globulin 2.7 gm/dL (2.2-3.9) 04/05/18 06:09 Albumin/Globulin Ratio 1.1 (1.0-2.1) 04/05/18 06:09 Lipase 147 U/L (23-300) 04/01/18 19:24 Procalcitonin 29.90 NG/ML (0.19-0.49) H 04/02/18 07:50 Free T4 0.97 ng/dL (0.78-2.19) 04/03/18 06:03 TSH 3rd Generation 0.27 mIU/L (0.46-4.68) L 04/03/18 06:03 Cortisol AM Sample 6.7 ug/dL (4.46-22.7) 04/03/18 06:03 Urine Color [place] (YELLOW) 04/01/18 19:41 Urine Clarity Hazy (Clear) 04/01/18 19:41 Urine pH 5.0 (5.0-8.0) 04/01/18 19:41 Ur Specific [place] 1.033 (1.003-1.030) H 04/01/18 19:41 Urine Protein 2+ mg/dL (NEGATIVE) H 04/01/18 19:41 Urine Glucose (UA) Normal mg/dL (Normal) 04/01/18 19:41 Urine Ketones Negative mg/dL (NEGATIVE) 04/01/18 19:41 Urine Blood Negative (NEGATIVE) 04/01/18 19:41 Urine Nitrate Negative (NEGATIVE) 04/01/18 19:41 Urine Bilirubin Negative (NEGATIVE) 04/01/18 19:41 Urine Urobilinogen 2.0 mg/dL (0.2-1.0) H 12 19:41 Ur Leukocyte Esterase Trace Chandu/uL (Negative) 04/01/18 19:41 Urine WBC (Auto) 90 /hpf (0-5) H 04/01/18 19:41 Urine RBC (Auto) 3 /hpf (0-3) 04/01/18 19:41 Ur Squamous Epith Cells 56 /hpf (0-5) H 04/01/18 19:41 Urine Bacteria Many (<OCC) H 04/01/18 19:41 Urine HCG, Qual Negative (NEGATIVE) 04/03/18 07:43 Stool Occult Blood Positive (NEGATIVE) H 04/01/18 19:39 Blood Type A POSITIVE 04/01/18 21:15 Blood Type Confirm A POSITIVE 04/01/18 21:15 Antibody Screen Negative 04/01/18 21:15 Discharge Exam - Head Exam Head Exam: ATRAUMATIC, NORMOCEPHALIC Discharge Plan - Discharge Medications Prescriptions: Acetaminophen/Butalbital/Caf [Fioricet] 1 tab PO Q6H PRN #15 tab PRN Reason: Headache Ciprofloxacin [Cipro] 500 mg PO Q12H #14 tab Hydrocortisone 2.5% (Rectal) [Anusol-Hc] 2.5 gm IN BID #1 tube metroNIDAZOLE [Flagyl] 500 mg PO Q8H #21 tab Sucralfate [Carafate Tab] 1 gm PO BID #28 tab traMADol [Ultram] 50 mg PO TID PRN #15 tab PRN Reason: Pain, Severe (8-10) - Follow Up Plan Condition: GUARDED Disposition: HOME/ ROUTINE Additional Instructions: The following instructions should be provided to patient upon discharge: 1). Follow up with Oncologist Dr. Donald as planned on Monday04/09/18 to continue your Chemotherapy. 2). Please be sure to let Dr. Donald know that you had CT Abdomen/Pelvis, CT Head, and MRI Brain performed. He will have access to these studies through the computer. 3). Please make sure to schedule appointment with [employer] Host[employer] Dr. Lundberg for next week by calling his office at [phone]. 4). You stated that you had enough of your Levothyroxine at home, so please continue to use this as directed by your primary care physician. 5). You were provided with the following prescriptions that you should have filled at your pharmacy on your way home from the hospital: Tramadol 50 mg, 1 tablet by mouth every 8 hours ONLY as needed for severe pain, Dispense #15, NO refills Metronidazole 500 mg, 1 tablet by mouth 3x/day (8 AM, 2 PM, 8 PM) until finished, Dispense #21, NO refills Ciprofloxacin 500 mg, 1 tablet by mouth 2x/day (8 AM and 8 PM) until finished, Dispense #14, NO refills Fioricet, 1 tablet by mouth every 6 hours ONLY as needed for severe headache, Dispense #15, NO refills Sucralafate 1 gm, 1 tablet by mouth 2x/day (8 AM and 8 PM), Dispense #28, NO refills Hydrocortisone 2.5% 50 gram tube, 2.5 gm apply to your rectum 2x/day (8 AM and 8 PM), NO refills 6). Please stay well hydrated with water. 7). Please make sure that you keep your stool soft. If you find that they are becoming hard, you may drink 8 ounces of prune juice in the morning once a day until they are soft. 8). Please take care Florentin Mejia D.O.
--- NOTE | 2018-04-05 19:02 | CP.PCM.DIS ---
Provider - Provider Date of Admission: 04/01/18 23:15 Attending physician: Hardik Beauchamp MD Consults: 04/02/18 00:45 Gastroenterology Consult Routine Comment: Consulting Provider: Timi Lundberg Consulting Physician: Timi Lundberg Reason for Consult: Bloody diarrhea x 5, hx lf breast CA 04/02/18 00:48 Hematology Oncology Consult Routine Comment: Consulting Provider: Miguel Donald Consulting Physician: Miguel Donald Reason for Consult: bloody diarrhea, hx of left Breast CA Time Spent in preparation of Discharge (in minutes): 40 Hospital Course - Lab Results Lab Results: Micro Results 04/02/18 15:39 Urine,Clean Catch Urine Culture - Final No Growth (<1,000 CFU/ML) 04/02/18 07:51 Nose MRSA Culture (Admit) - Final MRSA NOT DETECTED Most Recent Lab Values WBC 3.1 K/uL (4.8-10.8) L 04/05/18 06:09 RBC 3.13 Mil/uL (3.80-5.20) L 04/05/18 06:09 Hgb 9.6 g/dL (11.0-16.0) L 04/05/18 06:09 Hct 28.0 % (34.0-47.0) L 04/05/18 06:09 MCV 89.4 fL (81.0-99.0) 04/05/18 06:09 MCH 30.5 pg (27.0-31.0) 04/05/18 06:09 MCHC 34.1 g/dL (33.0-37.0) 04/05/18 06:09 RDW 16.0 % (11.5-14.5) H 04/05/18 06:09 Plt Count 136 K/uL (130-400) 04/05/18 06:09 MPV 7.2 fL (7.2-11.7) 04/05/18 06:09 Neut % (Auto) 54.1 % (50.0-75.0) 04/05/18 06:09 Lymph % (Auto) 37.0 % (20.0-40.0) 04/05/18 06:09 [place] % (Auto) 8.2 % (0.0-10.0) 04/05/18 06:09 Eos % (Auto) 0.1 % (0.0-4.0) 04/05/18 06:09 Baso % (Auto) 0.6 % (0.0-2.0) 04/05/18 06:09 Neut # (Auto) 1.7 K/uL (1.8-7.0) L 04/05/18 06:09 Lymph # (Auto) 1.2 K/uL (1.0-4.3) 04/05/18 06:09 [place] # (Auto) 0.3 K/uL (0.0-0.8) 04/05/18 06:09 Eos # (Auto) 0.0 K/uL (0.0-0.7) 04/05/18 06:09 Baso # (Auto) 0.0 K/uL (0.0-0.2) 04/05/18 06:09 Neutrophils % (Manual) 90 % (50-75) H 04/02/18 07:50 Lymphocytes % (Manual) 6 % (20-40) L 04/02/18 07:50 Monocytes % (Manual) 4 % (0-10) 04/02/18 07:50 Differential Comment 04/04/18 05:42 Platelet Estimate Normal (NORMAL) 04/02/18 07:50 RBC Morphology Normal 04/02/18 07:50 PT 12.9 SECONDS (9.7-12.2) H 04/01/18 19:24 INR 1.2 04/01/18 19:24 APTT 22 SECONDS (21-34) 04/01/18 19:24 Sodium 138 mmol/L (132-148) 04/05/18 06:09 Potassium 3.5 mmol/L (3.6-5.2) L 04/05/18 06:09 Chloride 103 mmol/L (98-107) 04/05/18 06:09 Carbon Dioxide 28 mmol/L (22-30) 04/05/18 06:09 Anion Gap 11 (10-20) 04/05/18 06:09 BUN 4 mg/dL (7-17) L 04/05/18 06:09 Creatinine 0.6 mg/dL (0.7-1.2) L 04/05/18 06:09 Est GFR ( Amer) > 60 04/05/18 06:09 Est GFR (Non-Af Amer) > 60 04/05/18 06:09 POC Glucose (mg/dL) 83 mg/dL (65-110) 04/03/18 11:38 Random Glucose 92 mg/dL (65-105) 04/05/18 06:09 Lactic Acid 0.9 mmol/L (0.7-2.1) 04/02/18 07:50 Calcium 8.2 mg/dl (8.6-10.4) L 04/05/18 06:09 Phosphorus 4.0 mg/dL (2.5-4.5) 04/05/18 06:09 Magnesium 1.8 mg/dL (1.6-2.3) 04/05/18 06:09 Total Bilirubin 0.3 mg/dL (0.2-1.3) 04/05/18 06:09 AST 19 U/L (14-36) 04/05/18 06:09 ALT 30 U/L (9-52) 04/05/18 06:09 Alkaline Phosphatase 95 U/L (38-126) 04/05/18 06:09 Total Protein 5.7 g/dL (6.3-8.3) L 04/05/18 06:09 Albumin 2.9 g/dL (3.5-5.0) L 04/05/18 06:09 Globulin 2.7 gm/dL (2.2-3.9) 04/05/18 06:09 Albumin/Globulin Ratio 1.1 (1.0-2.1) 04/05/18 06:09 Lipase 147 U/L (23-300) 04/01/18 19:24 Procalcitonin 29.90 NG/ML (0.19-0.49) H 04/02/18 07:50 Free T4 0.97 ng/dL (0.78-2.19) 04/03/18 06:03 TSH 3rd Generation 0.27 mIU/L (0.46-4.68) L 04/03/18 06:03 Cortisol AM Sample 6.7 ug/dL (4.46-22.7) 04/03/18 06:03 Urine Color [place] (YELLOW) 04/01/18 19:41 Urine Clarity Hazy (Clear) 04/01/18 19:41 Urine pH 5.0 (5.0-8.0) 04/01/18 19:41 Ur Specific [place] 1.033 (1.003-1.030) H 04/01/18 19:41 Urine Protein 2+ mg/dL (NEGATIVE) H 04/01/18 19:41 Urine Glucose (UA) Normal mg/dL (Normal) 04/01/18 19:41 Urine Ketones Negative mg/dL (NEGATIVE) 04/01/18 19:41 Urine Blood Negative (NEGATIVE) 04/01/18 19:41 Urine Nitrate Negative (NEGATIVE) 04/01/18 19:41 Urine Bilirubin Negative (NEGATIVE) 04/01/18 19:41 Urine Urobilinogen 2.0 mg/dL (0.2-1.0) H 04/01/18 19:41 Ur Leukocyte Esterase Trace Chandu/uL (Negative) 04/01/18 19:41 Urine WBC (Auto) 90 /hpf (0-5) H 04/01/18 19:41 Urine RBC (Auto) 3 /hpf (0-3) 04/01/18 19:41 Ur Squamous Epith Cells 56 /hpf (0-5) H 04/01/18 19:41 Urine Bacteria Many (<OCC) H 04/01/18 19:41 Urine HCG, Qual Negative (NEGATIVE) 04/03/18 07:43 Stool Occult Blood Positive (NEGATIVE) H 04/01/18 19:39 Blood Type A POSITIVE 04/01/18 21:15 Blood Type Confirm A POSITIVE 04/01/18 21:15 Antibody Screen Negative 04/01/18 21:15 - Hospital Course Hospital Course: Hospitalist Discharge Summary Very pleasant 37 year old female with past medical history Left breast CA under IV chemotherapy 3/6 doses, Hypothyroidism who was admitted on 04/02/18 for evaluation and treatment of blood diarrhea. Please see below for further breif details and the hospital record for full details Patient was seen and examined at 5:00 PM ROS: Pounding headache is still present Bilateral eye twitching right greater than left is still present but not occurring continuously Two nonblood/nonblack soft bowel movements NO n/v since in the ICU and tolerating diet Exam: General: AAOX3, NAD HEENT: NCA, EOMI, PERRLA, NO lymphadenopathy, NO pharyngeal erythema/exudate, NO thyromegaly Cardio: NS1 and NS2, NO M/R/G Resp: CTA B/L, NO R/R/W GI: BSx4, Soft, NT, ND, NO HSM, NO guarding/rebound tenderness Ext: Pulses are strong and equal, capillary refill is 2 seconds, NO edema Neuro: CN II through XII are grossly intact Assessements: 1). GI Bleed 2). Anemia likely Secondary to GI Bleed 3). Enteritis 4). Hypotension 5). Hx Left Breast CA on Chemotherapy 6). Hypothyroidism 7). Hypokalemia 8). Hypomagnesemia 9). Abnormal UA Colonoscopy performed 04/03/18 indicated anal ulcer and internal hermorrhoids as likely cause of bleed: Hydrocortisone Topical ordered by GI and will need follow up with Dr. Lundberg in the office next week S/P 2 units PRBC upon admission. HgB/Hct have remained stable despite subsequent blood with bowel movements. On 04/05/18 the bleeding resolved and the bowel movements were soft Continue Cipro and Flagyl for the Enteritis for 7 days more Urine Culture did not show any growth. There are NO urinary complaints F/U with Heme/Onc Dr. Donald for Hx of Left Breast CA. She has appointment with Medical Transcription Supervisor/Oncologist Dr. Donald for next Chemotherapy Tx on Monday04/09/[address] Head did not show any acute stroke/hemorrhage or masses. However considering the patient's history of Breast CA, MRI Brain performed on 04/05/18 and this did not show any metastatic disease but did show small vessel disease Hypokalemia and Hypomagnesemia have resolved Blood pressure is better The following instructions were explained to patient and Nurse Deepti will provide a copy to her upon discharge 1). Follow up with Oncologist Dr. Donald as planned on Monday04/09/18 to continue your Chemotherapy. 2). Please be sure to let Dr. Donald know that you had CT Abdomen/Pelvis, CT Head, and MRI Brain performed. He will have access to these studies through the computer. 3). Please make sure to schedule appointment with [employer] Fe[employer] Dr. Lundberg for next week by calling his office at [phone]. 4). You stated that you had enough of your Levothyroxine at home, so please continue to use this as directed by your primary care physician. 5). You were provided with the following prescriptions that you should have filled at your pharmacy on your way home from the hospital: Tramadol 50 mg, 1 tablet by mouth every 8 hours ONLY as needed for severe pain, Dispense #15, NO refills Metronidazole 500 mg, 1 tablet by mouth 3x/day (8 AM, 2 PM, 8 PM) until finished, Dispense #21, NO refills Ciprofloxacin 500 mg, 1 tablet by mouth 2x/day (8 AM and 8 PM) until finished, Dispense #14, NO refills Fioricet, 1 tablet by mouth every 6 hours ONLY as needed for severe headache, Dispense #15, NO refills Sucralafate 1 gm, 1 tablet by mouth 2x/day (8 AM and 8 PM), Dispense #28, NO refills Hydrocortisone 2.5% 50 gram tube, 2.5 gm apply to your rectum 2x/day (8 AM and 8 PM), NO refills 6). Please stay well hydrated with water. 7). Please make sure that you keep your stool soft. If you find that they are becoming hard, you may drink 8 ounces of prune juice in the morning once a day until they are soft. Florentin Steele D.O. Discharge Exam - Head Exam Head Exam: ATRAUMATIC, NORMOCEPHALIC Discharge Plan - Discharge Medications Prescriptions: Acetaminophen/Butalbital/Caf [Fioricet] 1 tab PO Q6H PRN #15 tab PRN Reason: Headache Ciprofloxacin [Cipro] 500 mg PO Q12H #14 tab Hydrocortisone 2.5% (Rectal) [Anusol-Hc] 2.5 gm NE BID #1 tube metroNIDAZOLE [Flagyl] 500 mg PO Q8H #21 tab Sucralfate [Carafate Tab] 1 gm PO BID #28 tab traMADol [Ultram] 50 mg PO TID PRN #15 tab PRN Reason: Pain, Severe (8-10) - Follow Up Plan Condition: GUARDED Disposition: HOME/ ROUTINE Additional Instructions: The following instructions should be provided to patient upon discharge: 1). Follow up with Oncologist Dr. Donald as planned on Monday04/09/18 to continue your Chemotherapy. 2). Please be sure to let Dr. Donald know that you had CT Abdomen/Pelvis, CT Head, and MRI Brain performed. He will have access to these studies through the computer. 3). Please make sure to schedule appointment with [facility] Fe[facility] Dr. Lundberg for next week by calling his office at [phone]. 4). You stated that you had enough of your Levothyroxine at home, so please continue to use this as directed by your primary care physician. 5). You were provided with the following prescriptions that you should have filled at your pharmacy on your way home from the hospital: Tramadol 50 mg, 1 tablet by mouth every 8 hours ONLY as needed for severe pain, Dispense #15, NO refills Metronidazole 500 mg, 1 tablet by mouth 3x/day (8 AM, 2 PM, 8 PM) until finished, Dispense #21, NO refills Ciprofloxacin 500 mg, 1 tablet by mouth 2x/day (8 AM and 8 PM) until finished, Dispense #14, NO refills Fioricet, 1 tablet by mouth every 6 hours ONLY as needed for severe headache, Dispense #15, NO refills Sucralafate 1 gm, 1 tablet by mouth 2x/day (8 AM and 8 PM), Dispense #28, NO refills Hydrocortisone 2.5% 50 gram tube, 2.5 gm apply to your rectum 2x/day (8 AM and 8 PM), NO refills 6). Please stay well hydrated with water. 7). Please make sure that you keep your stool soft. If you find that they are becoming hard, you may drink 8 ounces of prune juice in the morning once a day until they are soft. 8). Please take care Florentin Mejia D.O.
== END 2018-04-05 19:40 | disposition home or self-care (01) | DRG 188 ==
LOC: C.ER 18:30 → C.9E 23:15 → C.9I 04-02 02:37
PROVIDERS: ADMIT Family Medicine; ATTEND Family Medicine
PROC: 30233N1 Transfusion of Nonautologous Red Blood Cells into Peripheral Vein, Percutaneous Approach (ICD-10-PCS; principal; 2018-04-02)
PROC: 0DJD8ZZ Inspection of Lower Intestinal Tract, Via Natural or Artificial Opening Endoscopic (ICD-10-PCS; 2018-04-03)
DX: K62.6 Ulcer of anus and rectum (principal); E86.1 Hypovolemia; K62.5 Hemorrhage of anus and rectum; D50.0 Iron deficiency anemia secondary to blood loss (chronic); E87.6 Hypokalemia; K57.90 Diverticulosis of intestine, part unspecified, without perforation or abscess without bleeding; K64.8 Other hemorrhoids; K52.9 Noninfective gastroenteritis and colitis, unspecified; I95.9 Hypotension, unspecified; E83.42 Hypomagnesemia; C50.912 Malignant neoplasm of unspecified site of left female breast; J45.909 Unspecified asthma, uncomplicated; E03.9 Hypothyroidism, unspecified; Z87.891 Personal history of nicotine dependence

== ENCOUNTER 2018-08-24 12:33 | Outpatient (CLI) | payer MEDICAID | END 2018-08-24 12:34 | disposition home or self-care (01) | LOC: C.CARD 12:33 | DX: C50.912 Malignant neoplasm of unspecified site of left female breast (principal) ==